=== PATIENT | female | born 1935 | race Caucasian/White ===

== ENCOUNTER → 2016-10-23 08:07 | Outpatient (CLI) | payer MEDICARE, OTHER ==
[2015-10-24 16:39] VITALS: BMI 24.1
[~2016-10-23 08:07] MED LIST: BAYER CHEWABLE81 MG PO; CRESTOR5 MG PO; JANUVIA100 MG PO; KLOR-CON 1010 MEQ PO; NAMENDA10 MG PO; NEXIUM40 MG PO; PLAVIX75 MG PO; REQUIP4 MG PO; ZYRTEC10 MG PO
== END | disposition home or self-care (01) ==
LOC: D.CT 08:07
DX: R31.9 Hematuria, unspecified (principal)

== ENCOUNTER 2016-11-05 14:51 | Inpatient (IN) | payer MEDICARE, OTHER ==
[~2016-11-05] VITALS: Ht 157.5 cm; Wt 65.8 kg
--- NOTE | ~2016-11-05 | DS ---
PATIENT:DERIC BEARDEN :37 MEDICAL RECORD: [id number] DISCHARGE SUMMARY ADMISSION DATE: 11/05/16 DISCHARGE DATE: 11/08/16 DATE OF ADMISSION: 11/05/2016 DATE OF DISCHARGE: 11/08/2016 ADMITTING DIAGNOSES: 1. Urinary tract infection. 2. Dehydration. 3. Acute kidney injury. 4. Nephrolithiasis. 5. Diarrhea that is chronic. HOSPITAL COURSE: This is a lady of Dr. Kramer, admitted with diagnoses as outlined above. Details are well-outlined in the history of the present illness, H&P. All events, lab procedures, diagnostic testing are well documented in the records. She is an established patient of Dr. Lama, who does not come here. She has nephrolithiasis status post urethral stenting by him about 2 weeks ago. She is admitted with diagnoses as outlined above. CONSULTANTS: Dr. Hunt, urology, his recommendations were followed. She was taken to the OR. She underwent cytoscopy with removal of previous stent, left retrograde pyelogram, left ureteroscopy, laser lithotripsy, stone extraction, left ureteral stent insertion with string attached. Please refer to his operative report. She was having some tight throat and nausea when she got back from the OR. No stridor on exam, it was suspected she had throat tightness and nausea due to irritation from ET tube. She was given Decadron times 1 and some Zofran. She did well overnight. Her throat irritation, tightness, and nausea all resolved. She is sitting up on the side of the bed. She is eating lunch. No dysphagia, no trouble swallowing. Her daughter is here. They both want to go home. She has been seen by Dr. Hunt and felt stable for dismissal home. PHYSICAL EXAMINATION: VITAL SIGNS: She is afebrile, pulse 61, respirations 22, blood pressure 130/57. O2 sat 96% room air. Blood sugar 186. LABORATORY DATA: White count 3, hemoglobin 11, platelets are 196. Sodium 138, potassium 4, chloride 106, CO2 is 22, BUN 17, serum creatinine 1.3. She is stable for dismissal home. She will follow up with house calls. Dr. Sheridan is her PCP. She will follow up with Dr. Hunt next week to have the stent removed by pulling on the string. Cultures have shown no growth. She will have 5 more days of antibiotics. Please refer to APR. 33 minutes was spent on this discharge. DISCHARGE DIAGNOSES: 1. Urinary tract infection. 2. Dehydration. 3. Acute kidney injury. Her acute kidney injury was prerenal due to dehydration and has resolved. 4. Nephrolithiasis. 5. Diarrhea that is chronic. 6. Left mid ureter 1.1 cm stone with urinary tract infection, status post DISCHARGE SUMMARY REPORT [id number] DERIC BEARDEN cytoscopy removal of previous stent, left ureteroscopy, laser lithotripsy, stone extraction and left ureteral stent insertion with string. Please refer to operative report. TRANSINT:[id number] Voice Confirmation ID: [id number] DOCUMENT ID: [id number] Dictated By: FAMILIA MAGALLANES RN I have interviewed/examined the above patient and agree with these documented findings. RADHIKA BRENNER DO CC: [id number] DICTATION DATE: 11/08/16 1356 SMOG TECHNICIAN: 11/08/16 2336 DIS IN 11/08/16 [address] [place] [address]
[2016-11-05 18:22] LABS: BASOPHILS 0.2 % (0-2); EOSINOPHILS 1.9 % (0-7); HEMATOCRIT 36.1 % (36.0-48.0); HEMOGLOBIN 11.8 g/dL (12-16); MCH 30.7 pg (26.0-34.0); MCHC 32.7 g/dL (31.0-37.0); MEAN PLATELET VOLUME 9.5 fL (7.4-10.4); MONOCYTES 9.1 % (2-11); NEUTROPHILS 75.8 % (40-80); PLATELET COUNT 206 10x3/uL (130-400); RBC 3.84 10x6/uL (4.00-5.40); RDW 12.7 % (11.5-14.5); WBC 5.2 10x3/uL (4.8-10.8)
[2016-11-05 18:32] LABS: APPEARANCE CLEAR (CLEAR); BILIRUBIN NEGATIVE (NEGATIVE); COLOR YELLOW (YELLOW); GLUCOSE NEGATIVE (NEGATIVE); KETONE NEGATIVE (NEGATIVE); LEUKOCYTE ESTERASE 1+ (NEGATIVE); NITRITE NEGATIVE (NEGATIVE); PROTEIN TRACE mg/dL (NEGATIVE); UROBILINOGEN NORMAL (NORMAL)
[2016-11-05 18:35] LABS: EPITHELIAL CELLS 0-5 /hpf (0-5); RED CELLS - URINE 0-5 /hpf (0-5)
[2016-11-05 18:36] LABS: ALBUMIN 3.9 g/dL (3.4-5.0); ANION GAP 13.1 mmol/L (8-16); BILIRUBIN - TOTAL 0.7 mg/dL (0.2-1.3); CALCIUM 8.9 mg/dL (8.5-10.1); CARBON DIOXIDE 27.6 mmol/L (21.0-32.0); POTASSIUM - SERUM 4.7 mmol/L (3.5-5.1); PROTEIN - SERUM 7.6 g/dL (6.4-8.2)
[2016-11-05 18:38] LABS: BACTERIA MODERATE /hpf (NONE SEEN)
--- NOTE | 2016-11-05 22:30 | NUR ---
RECEIVED FROM ER. ALERT/ORIENTED X 4. AMBULATED WITH ASSISTANCE TO THE BED. STATED SHE HAD BEEN HAVING DIARRHEA AND FEELING WEAK. HAS AN IV IN L FA SL. ORIENTED TO ROOM AND CALL LIGHT. REQUESTED A SANDWICH. HER DAUGHTER IS PRESENT IN ROOM.
[2016-11-06] VITALS (8 sets, daily range): BP systolic 107–186; BP diastolic 46–70; Ht 157.5 cm; Wt 65.8 kg
[2016-11-06] MEDS ORDERED: NEURONTIN 300300 MG PO (04:27)
[2016-11-06] MEDS ORDERED: BYSTOLIC5 MG PO (04:29)
[2016-11-06] MEDS ORDERED: XALATAN 0.0052.5 ML EACH EYE (04:31)
--- NOTE | 2016-11-06 05:55 | NUR ---
ASSISTED TO BATHROOM TO VOID AND BACK TO BED.
--- NOTE | 2016-11-06 07:55 | NUR ---
AM ROUNDS COMPLETED. INTRODUCED MYSELF TO PT PRIMARY RN FOR TODAYS SHIFT. PT A&O SITTING UP ON EDGE OF BED AND STATES SHE JUST FINISHED USING THE BR. PT DENIES ANY DIARRHEA BUT IS AWARE WE NEED A SAMPLE IF AVAILABLE. PT HAS L.FA PIV WITH NS @100ML/HR INFUSING. PT DENIES ANY CURRENT PAIN OR NEEDS. CL IN REACH, BED IN LOWEST, SIDE RAILS X2 WILL CPOC.
--- NOTE | 2016-11-06 09:53 | NUR ---
INITIATED PTS IVPB ANBX INFUSING VIA L.FA PIV ACCESS. PT HAS NS @100ML/HR ALSO INFUSING. PT RESTING WITH FAMILY AT BEDSIDE. DENIES ANY CURRENT PAIN OR NEEDS AT THIS TIME. WILL CPOC.
--- NOTE | 2016-11-06 10:02 | NUR ---
STOOL SPECIMEN COLLECTED AND SENT TO LAB. PT HAS DIARRHEA LIGHT BROWN IN COLOR. WILL CPOC.
--- NOTE | 2016-11-06 12:15 | NUR ---
PT UP TO BR WITH FAMILY AT BEDSIDE ASSISTING. PT DENIES ANY CURRENT PAIN OR NEEDS. CL IN REACH. WILL CPOC.
--- NOTE | 2016-11-06 15:00 | NUR ---
PT SITTING UP IN BED RESTING QUIETLY WITH FAMILY AT BEDSIDE. PT INQUIRING ABOUT SEEING AND TOMORROWS PLAN. IN SX AND UNAVAILABLE AT THIS TIME. WILL CPOC.
--- NOTE | 2016-11-06 17:45 | NUR ---
PT EATING DINNER AND RESTING QUIETLY IN BED. RR NONLABORED ON RA. PT DENIES ANY CURRENT PAIN OR NEEDS AND STATES SHE IS FEELING PRETTY GOOD OVERALL, STILL WAITING TO SEE . CL IN REACH. WILL CPOC.
--- NOTE | 2016-11-06 19:52 | NUR ---
ALERT/AWAKE RECEIVING UPDRAFT TX. ASSESSMENTS COMPLETED. LEFT CHEST CVL DRSG C/D/I WITH NS INFUSING AT 20ML/HR. PEG TUBE WITH JEVITY 1.5 HÉCTOR INFUSING AT 60 ML/HR. MADRIGAL INTACT/PATENT. HIS IS PRESENT IN ROOM.
--- NOTE | 2016-11-06 21:15 | NUR ---
PATIENT IS ALERT, WATCHING TV. DENIES NEEDS AT THIS TIME. CALL LIGHT IN REACH.
[2016-11-07 04:00] VITALS: BP 192/69
--- NOTE | 2016-11-07 08:20 | NUR ---
AM ROUNDS COMPLETED. INTRODUCED MYSELF TO PT PRIMARY RN FOR TODAYS SHIFT. PT A&O SITTING UP IN BED STATES SHE JUST FINISHED SHOWERING. INTITIATED PTS IVPB ROCEPHIN INFUSING OVER 30MINS VIA L.FA PIV ACCESS WITH NS @100ML/HR RUNNING PRIMARY. PT STATES SHE DID NOT SLEEP WELL AND WAS UP MANY TIMES THROUGHOUT THE NIGHT WITH DIARRHEA. SHE STATES SHE HAS 4 LOOSE BMS THAT WERE BLACK IN COLOR. ASKED HER TO SAVE THE NEXT ONE SO I CAN CHECK IT OUT AND WILL NOTIFY PRIMARY TO SEE ABOUT NEEDING AN OCCULT STOOL COLLECTED. PT NPO FOR PROCEDURE TODAY DENIES ANY QUESTIONS OR CONCERNS AND HAS BEEN NPO SINCE MIDNIGHT. CL IN REACH, BED IN LOWEST, SIDE RAILS X2. NO CURRENT NEEDS AT THIS TIME. WILL CPOC.
[2016-11-07 09:53] LABS: BASOPHILS 0.2 % (0-2); EOSINOPHILS 2.1 % (0-7); HEMATOCRIT 33.8 % (36.0-48.0); HEMOGLOBIN 11.1 g/dL (12-16); LYMPHOCYTES 24.3 % (15-50); MCH 30.6 pg (26.0-34.0); MCHC 32.8 g/dL (31.0-37.0); MCV 93.1 fL (80.0-100.0); MEAN PLATELET VOLUME 9.7 fL (7.4-10.4); MONOCYTES 9.1 % (2-11); NEUTROPHILS 64.3 % (40-80); PLATELET COUNT 203 10x3/uL (130-400); RBC 3.63 10x6/uL (4.00-5.40); RDW 12.6 % (11.5-14.5); WBC 4.7 10x3/uL (4.8-10.8)
[2016-11-07 09:58] LABS: ANION GAP 14.9 mmol/L (8-16); CALCIUM 8.1 mg/dL (8.5-10.1); CARBON DIOXIDE 25.9 mmol/L (21.0-32.0); CREATININE - SERUM 1.3 mg/dL (0.6-1.3); PHOSPHOROUS 3.6 mg/dL (2.5-4.9); POTASSIUM - SERUM 3.8 mmol/L (3.5-5.1)
--- NOTE | 2016-11-07 11:48 | NUR ---
CONSENTS SIGNED AND OBTAINED IN CHART. PT RESTING QUIETLY IN BED WITH AT BEDSIDE. DENIES ANY CURRENT PAIN OR NEEDS AT THIS TIME. CL IN REACH. WILL CPOC.
[2016-11-07 12:00] VITALS: BP 193/61
--- NOTE | 2016-11-07 14:07 | NUR ---
EKG DONE STAT FOR PRE-OP. PRE-OP MEDS ORDERED AND GIVEN. LEVAQUIN ANBX SENT WITH PT TO SX. TRANSDERM PATCH UNAVAILABLE FROM PHARMACY I CALLED AND TOLD THEM TO SEND IT TO SX STAT. PT LEAVING WITH FOOD PRODUCT INSPECTOR NOW. FAMILY AT BEDSIDE. NO FURTHER NEEDS.
--- NOTE | 2016-11-07 14:21 | NUR ---
PATCH WAS IN CASSETTE SO I BROUGHT IT TO SX AND PLACED BEHIND PTS L.EAR.
--- NOTE | 2016-11-07 16:40 | NUR ---
SCOPE PATCH BEHIND LT EAR ON ADMIT
--- NOTE | 2016-11-07 16:47 | NUR ---
[facility] 110 @[id number]
--- NOTE | 2016-11-07 17:12 | NUR ---
PT BACK FROM PROCEDURE. VSS AND BEING MONITERED PER POST PROCEDURE PROTOCOL. PT HAS STRING ADHERED TO ABDOMEN/MADELYN AREA FROM NEW STENT. PT A&O AND DENIES ANY PAIN. PTS FACE IS RED AND SPLOTCHY BUT SHE DENIES ANY WEIRD SENSATION. WILL CTM FOR ANY SPREAD. CL IN REACH, BED IN LOWEST, SIDE RAILS X2. WILL CPOC.
--- NOTE | 2016-11-07 17:43 | NUR ---
PT C/O HER THROAT FEELING LIKE ITS SWELLING. PULSE OX 96% ON RA. PROVIDED PT WITH WATER AND SHE SWALLOWED AND STATED IT HELPED. PTS MOUTH WAS EXTREMELY DRY. VSS AND STILL BEING MONITERED. PTS FAMILY AT BEDSIDE. NO FURTHER NEEDS AT THIS TIME. WILL CPOC.
[2016-11-07] MEDS ORDERED: HYDROCODON-ACE1 EAC9 PO (18:20)
--- NOTE | 2016-11-07 18:21 | NUR ---
PROVIDED PT WITH PRN ZOFRAN FOR NAUSEATED PT VOMITED ABOUT 300CC OF CLEAR LIQUID. PROVIDED PT WITH ONE TIME DOSE OF DECADRON FOR ALLERGIC REACTION/SKIN IRRITATION. VSS AND STILL BEING MONITERED. PROVIDED PT WITH COLD RAG TO FOREHEAD. FAMILY AT BEDSIDE CONSOLING HER. NO FURTHER NEEDS. WILL CTM.
[2016-11-07 20:00] VITALS: BP 140/55
--- NOTE | 2016-11-07 21:08 | NUR ---
PATIENT IS ALERT AND WATCHING TV, DAUGHTER IS AT BEDSIDE. IV IS IN LEFT FA WITH NS RUNNING AT 100ML/HR. PAIN MEDICATION GIVEN WITH EFFECTIVE RESULTS. CALL LIGHT IN REACH.
--- NOTE | 2016-11-08 00:18 | NUR ---
PT AWAKE; DENIES ANY DISCOMFORT. FAMILY AT BEDSIDE.
[2016-11-08 04:00] VITALS: BP 123/51
[2016-11-08 05:30] LABS: BASOPHILS 0 % (0-2); EOSINOPHILS 0 % (0-7); HEMATOCRIT 33.7 % (36.0-48.0); HEMOGLOBIN 11.3 g/dL (12-16); IMMATURE GRANULOCYTES 0.3 % (0-5); LYMPHOCYTES 22.1 % (15-50); MCHC 33.5 g/dL (31.0-37.0); MCV 92.3 fL (80.0-100.0); MEAN PLATELET VOLUME 9.6 fL (7.4-10.4); MONOCYTES 1.7 % (2-11); NEUTROPHILS 75.9 % (40-80); PLATELET COUNT 196 10x3/uL (130-400); RBC 3.65 10x6/uL (4.00-5.40); RDW 12.7 % (11.5-14.5)
[2016-11-08 06:04] LABS: ANION GAP 13.6 mmol/L (8-16); CALCIUM 7.1 mg/dL (8.5-10.1); CARBON DIOXIDE 22.4 mmol/L (21.0-32.0); CREATININE - SERUM 1.3 mg/dL (0.6-1.3)
[2016-11-08 08:10] VITALS: BP 130/57
--- NOTE | 2016-11-08 08:23 | NUR ---
AM ROUNDING DONE. REPORT RECEIVED. PT IS SLEEPING AT CHANGE OF SHIFT, DAUGHTER IS AT BEDSIDE. PT IS ON RA. NS RUNNING AT 100CC/HR TO LEFT FOREARM IV SITE. PT'S DAUGHTER STATES THAT SHE IS HOPING THAT PT WILL BE D/C'D TODAY. NO D/C ORDER YET. DTR DENIES NEEDS CURRENTLY. WILL CONTINUE TO MONITOR.
[2016-11-08 12:32] VITALS: BP 136/42
[2016-11-08] MEDS ORDERED: LEVAQUIN500 MG PO (13:40)
--- NOTE | 2016-11-08 15:08 | NUR ---
VERBAL AND WRITTEN DISCHARGE INSTRUCITONS GIVEN TO PATIENT AND DAUGHTER. TEJINDER RAYMOND WAS CALLED TO [facility] PER THEIR REQUEST. 500 MG # 5 WITH NO REFILLS. SALINE LOCK REMOVED WITH CATH TIP INTACT. DISCHARGED HOME VIA WHEELCHAIR.
--- NOTE | 2016-11-11 08:36 | OP ---
PATIENT NAME: DERIC BEARDEN MEDICAL RECORD: [id number] :37 LOCATION:D. D.2132 ADMISSION DATE:11/05/16 SURGEON: CHADD YOUNG MD DATE OF OPERATION: 11/07/2016 SURGEON: Chadd Young MD ANESTHESIA: General anesthesia by Dr. Carlson. PREOPERATIVE DIAGNOSIS: Left mid ureteral 1.1-cm stone with urinary tract infection. FINDINGS: Radiolucent 1.1-cm proximal left ureteral stone. PROCEDURES: Cystoscopy, removal of previous stent, left ureteroscopy, holmium laser lithotripsy with stone extraction, left ureteral stent insertion 6-Lebanese x 24 cm with string attached. Laser energy with the holmium laser was 0.5 joules times 311 pulses. SPECIMENS: 1. Old ureteral stent. 2. Portion of ureteral stone. BLOOD LOSS: None. CLINICAL HISTORY: This is an 81-year-old female, who has a history of diabetes mellitus and recurrent urinary tract infections. She has lately had episodes of sepsis from urinary tract infection and on imaging, she was found to have a 1.1-cm left mid ureteral stone causing hydronephrosis. She went to see Dr. Lama at [facility]. He inserted a left ureteral stent. In the interim, she got quite ill from urinary tract infection and she was brought to this hospital. She was started on IV Rocephin. In discussing the situation with the patient, she wished to have the stone removed here. She has been afebrile and her white count has gone down. We decided to proceed. She was given IV Levaquin prophylaxis. SHE IS ALLERGIC TO PENICILLIN, PROPOFOL, AND BACTRIM WELL LATEX. DESCRIPTION OF PROCEDURE: The patient was given induction of general anesthesia. She was placed in the dorsal lithotomy position. She was prepped and draped. A 21-Lebanese cystoscope with 30-degree lens was used for visualization. The patient has a significant cystocele, which made the ureteral orifice descend quite a distance from the urethral meatus. The old left ureteral stent that Dr. Lama had placed was seen. Grasping forceps were used and it was entirely removed. It will be sent to pathology for identification only. An open-ended ureteral catheter was then inserted and a left retrograde pyelogram was performed. This showed the stone as a filling defect in the mid to proximal ureter. We then inserted through the lumen of the open-ended ureteral catheter, a Sensor wire up to the renal pelvis. The open-ended ureteral catheter was then removed leaving the wire in place. Over the wire, we inserted a 21-Lebanese x 4-cm ureteral dilation balloon. The balloon was used to dilate the left ureteral orifice for a few seconds with 18 atmospheres of pressure. The balloon was then completely deflated and removed entirely. We then switched over to the rigid ureteroscope. The stone was seen to be lodged in some tissue edema of the ureter. I pushed it more proximally using the tip of the ureteroscope into an area where hydronephrosis of the OPERATIVE REPORT [id number] BEARDEN,DERIC ureter allowed for more working space. The 500 micron holmium laser fiber was then brought in. Using the 0.5 joules of energy per pulse at 6 ray, the stone was pulverized. A small speck of the stone ran up into the lower pole maria elena of the kidney from our irrigation. As we placed a 0-tip basket into the ureteroscope, we only manage to retrieve one fairly large fragment of the stone. Most of the other parts of the stone was basically dust and too small to retrieve with a basket. The small speck of stone that we retrieved was sent to pathology for stone analysis. The rigid ureteroscope was then removed. Over the Sensor wire, I inserted a 12-Lebanese ureteral access sheath. Under fluoroscopic guidance, the sheath was placed up into the UP junction. Then, the wire and the stylet of the sheath was completely removed. A flexible ureteroscope was placed and each of the calices was examined. A small speck of stone was found. We tried to remove it using the flexible basket; however, it eluded our grasp and basically was flushed down the ureteral access sheath. At this point, the wire was placed back into the kidney through the ureteral access sheath. The ureteral access sheath was then removed entirely. The cystoscope was backloaded onto the wire and over the wire, we inserted a 6-Lebanese x 24-cm ureteral stent. The string on the distal end of the stent is maintained. Once the proximal end of the stent was in the renal pelvis, we allowed the proximal end to coil by withdrawing the Sensor wire. Finally, the wire was entirely removed and the distal end of the stent was pushed into the bladder using the pusher. The bladder was emptied through the cystoscope. The string on the stent was then taped to the suprapubic region using a small piece of Tegaderm. The patient was awakened and brought to the recovery room. In a few days time, I will have the stent removed by pulling on the string. TRANSINT:[id number] Voice Confirmation ID: [id number] DOCUMENT ID: [id number] CHADD YOUNG MD at 0836 CC: [id number] DICTATION DATE: 11/07/16 160 RUBBER PROCESS HAND: 11/07/16 1831 DIS IN 11/08/16 [facility] [address] [id number]
== END 2016-11-08 15:12 | disposition home or self-care (01) | DRG 669 ==
LOC: D.ER 14:51 → D.M2 20:56
PROVIDERS: Physician Assistant; Urology; ADMIT Family Medicine
PROC: 0TC78ZZ Extirpation of Matter from Left Ureter, Via Natural or Artificial Opening Endoscopic (ICD-10-PCS; principal; 2016-11-07 13:00)
PROC: 0T778DZ Dilation of Left Ureter with Intraluminal Device, Via Natural or Artificial Opening Endoscopic (ICD-10-PCS; 2016-11-07 13:00)
PROC: 0TP98DZ Removal of Intraluminal Device from Ureter, Via Natural or Artificial Opening Endoscopic (ICD-10-PCS; 2016-11-07 13:00)
DX: N20.2 Calculus of kidney with calculus of ureter (principal); N39.0 Urinary tract infection, site not specified; N17.9 Acute kidney failure, unspecified; E86.0 Dehydration; K52.9 Noninfective gastroenteritis and colitis, unspecified; Z86.73 Personal history of transient ischemic attack (TIA), and cerebral infarction without residual deficits; R41.0 Disorientation, unspecified; I10 Essential (primary) hypertension; E11.9 Type 2 diabetes mellitus without complications; K21.9 Gastro-esophageal reflux disease without esophagitis

== ENCOUNTER 2016-11-23 12:32 | Inpatient (IN) | payer MEDICARE, OTHER ==
[~2016-11-23 12:32] MED LIST changes: +BYSTOLIC5 MG PO; +HYDROCODONE-APA1 TAB PO; -KLOR-CON 1010 MEQ PO; +KLOR-CON M2020 MEQ PO; +LEVAQUIN500 MG PO; +NEURONTIN 300300 MG PO; +XALATAN 0.0052.5 ML EACH EYE
[2016-11-23 13:07] LABS: BASOPHILS 0 % (0-2); EOSINOPHILS 0.3 % (0-7); HEMATOCRIT 37.6 % (36.0-48.0); HEMOGLOBIN 12.5 g/dL (12-16); IMMATURE GRANULOCYTES 0.2 % (0-5); LYMPHOCYTES 10.2 % (15-50); MCH 30.7 pg (26.0-34.0); MCHC 33.2 g/dL (31.0-37.0); MCV 92.4 fL (80.0-100.0); MEAN PLATELET VOLUME 9.5 fL (7.4-10.4); MONOCYTES 6.8 % (2-11); NEUTROPHILS 82.5 % (40-80); PLATELET COUNT 176 10x3/uL (130-400); RBC 4.07 10x6/uL (4.00-5.40); RDW 12.3 % (11.5-14.5); WBC 12.6 10x3/uL (4.8-10.8)
[2016-11-23 13:16] LABS: APPEARANCE HAZY (CLEAR); BILIRUBIN NEGATIVE (NEGATIVE); COLOR YELLOW (YELLOW); GLUCOSE 100 mg/dL (NEGATIVE); KETONE NEGATIVE (NEGATIVE); NITRITE NEGATIVE (NEGATIVE); PROTEIN NEGATIVE (NEGATIVE); UROBILINOGEN NORMAL (NORMAL)
[2016-11-23 13:20] LABS: ALBUMIN 3.6 g/dL (3.4-5.0); ANION GAP 15.8 mmol/L (8-16); BILIRUBIN - TOTAL 0.93 mg/dL (0.2-1.3); CARBON DIOXIDE 28.1 mmol/L (21.0-32.0); CREATININE - SERUM 1.1 mg/dL (0.6-1.3); POTASSIUM - SERUM 3.9 mmol/L (3.5-5.1); PROTEIN - SERUM 7.5 g/dL (6.4-8.2)
[2016-11-23 13:23] LABS: BACTERIA MODERATE /hpf (NONE SEEN); EPITHELIAL CELLS 0-5 /hpf (0-5); RED CELLS - URINE 0-5 /hpf (0-5)
[2016-11-23 15:27] LABS: APTT 24.7 SECONDS (22.8-39.4); INR 1.05 (0.85-1.17); PROTIME 13.5 SECONDS (11.6-15.0)
--- NOTE | 2016-11-23 16:35 | NUR ---
RECEIVED PATIENT VIA STRETCHER FROM THE EMERGENCY ROOM. PATIENT'S 2 DAUGHTERS WITH HER. PATIENT IS AWAKE, ALERT, AND ORIENTED TO PERSON ONLY. DISORIENTED TO PLACE, TIME, AND SITUATION. ORIENTED PATIENT TO HER ROOM AND CALL LIGHT. WILL MONITOR PATIENT.
[2016-11-23 17:43] VITALS: BP 127/59; BMI 26.9
--- NOTE | 2016-11-23 17:43 | NUR ---
ADMISSION ASSESSMENT COMPLETED. SEE FLOWSHEET FOR ANY DETAILS. PATIENT IS ONLY ORIENTED TO HER NAME ONLY. DISORIENTED TO PLACE, TIME, AND SITUATION. PATIENT DENIES ANY PAIN. WEAKNESS NOTED TO BILATERAL UPPER AND LOWER EXTREMITIES. CALL LIGHT IN PATIENT'S REACH. PATIENT DENIES NEEDS AT PRESENT TIME. WILL MONITOR PATIENT.
--- NOTE | 2016-11-23 19:00 | NUR ---
REPORT RECEIVED AND CARE OF PT ASSUMED. PT LYING IN SUPINE POSITION VISITING WITH DAUGHTER. IV IN LEFT WRIST PATENT WITH NS INFUSING AT KVO. SALINE LOCKED IV FOR NOW. BED ALARM IN USE AND SIDE RAILS UP X2 FOR SAFETY.
[2016-11-23 20:00] VITALS: BP 167/62
--- NOTE | 2016-11-23 21:42 | NUR ---
HS MEDICATIONS GIVEN. WILL CONTINUE TO MONITOR FOR NEEDS.
--- NOTE | 2016-11-23 22:00 | NUR ---
PLACED SCD'S ON PT PER ORDER.
[2016-11-24] VITALS: BP 156/71
--- NOTE | 2016-11-24 01:12 | NUR ---
PT RESTING QUIETLY ON LEFT SIDE PROPPED WITH PILLOWS PER TURN SCHEDULE. WILL CONTINUE TO MONITOR FOR NEEDS.
--- NOTE | 2016-11-24 02:23 | NUR ---
CHANGED INCONTINENCE BRIEF. CHANGED GOWN AND REPLACED ALL TELEMETRY PADS. MADELYN CARE PERFORMED. SCD'S REPLACED. TURNED PT TO LEFT SIDE PROPPED WITH PILLOWS AND BRIDGED HEELS. NEW GRIPPER SOCKS PLACED ON FEET. BED ALARM ACTIVATED. WILL CONTINUE TO MONITOR FOR NEEDS.
--- NOTE | 2016-11-24 03:05 | NUR ---
PT PULLED OUT CATHETER, WITH TIP INTACT. WILL RE-SITE.
[2016-11-24 04:00] VITALS: BP 143/69
--- NOTE | 2016-11-24 05:10 | NUR ---
RE-SITED IV TO LEFT WRIST USING 20 GUAGE CATHETER IN ONE STICK. WRAPPED WITH KERLEX TO PREVENT PT FROM PULLING OUT AGAIN. PT TOLERATED WELL.
--- NOTE | 2016-11-24 06:14 | NUR ---
ASSISTED PT TO USE BEDPAN. CHANGED WET BRIEF. MADELYN CARE PERFORMED AND BED PAD CHANGED. TURNED ONTO LEFT SIDE PROPPED WITH PILLOWS PER TURN SCHEDULE. HEELS BRIDGED AND SCD'S TURNED BACK ON.
[2016-11-24 06:41] LABS: BASOPHILS 0.1 % (0-2); EOSINOPHILS 0 % (0-7); HEMATOCRIT 33.9 % (36.0-48.0); HEMOGLOBIN 11.2 g/dL (12-16); IMMATURE GRANULOCYTES 0.4 % (0-5); LYMPHOCYTES 6.9 % (15-50); MCV 90.9 fL (80.0-100.0); MEAN PLATELET VOLUME 9.7 fL (7.4-10.4); MONOCYTES 7.6 % (2-11); RBC 3.73 10x6/uL (4.00-5.40); RDW 12.4 % (11.5-14.5); WBC 11.4 10x3/uL (4.8-10.8)
[2016-11-24 06:47] LABS: PLATELET COUNT 139 10x3/uL (130-400)
[2016-11-24 06:59] LABS: CALCIUM 8.6 mg/dL (8.5-10.1); CARBON DIOXIDE 26.5 mmol/L (21.0-32.0); POTASSIUM - SERUM 3.5 mmol/L (3.5-5.1)
[2016-11-24 08:30] VITALS: BP 138/45
--- NOTE | 2016-11-24 09:00 | NUR ---
DR MITCHELL INTO SEE PATIENT. PATIENT REMAINS NPO FOR CTA CAROTID W/WO CONTRAST. JAMEL BRAIN W/WO CONTRAST.
--- NOTE | 2016-11-24 10:52 | NUR ---
CHECKED ON PT FOR DIRECTOR OF MEDIA. PT RESTING COMFORTABLY. DENIES NEEDS AT THIS TIME. FAMILY MEMBERS REQUESTING TO HAVE DR. YOUNG ASSESS PT. AND ALSO WANT HER TO BE REFFERED TO DR. LAGUNA. SPOKE WITH LP AND WILL SHE WILL SPEAK WITH DR. CALDERÓN TO SEE ADDRESS THE FAMILIES REQUESTS.
--- NOTE | 2016-11-24 11:17 | NUR ---
Rehab Note- Acute Rehab Prescreen order received. The patient has an appropriate acute rehab diagnosis. The patient continues to have acute work up. Awaiting PT eval for functional mobility. Will follow at this time. Will plan for an acute rehab stay when medically stable and ready for discharge from the acute hospital. Thank you for this referral! Rneetta Hayes RN Clinical Liaison, [facility]
[2016-11-24 13:09] VITALS: BP 154/46
--- NOTE | 2016-11-24 13:31 | NUR ---
PATIENT INCONT. OF URINE. THIS NURSE GAVE MADELYN CARE. CHANGED BRIEFS.
--- NOTE | 2016-11-24 13:52 | NUR ---
FAMILY IN ROOM. PATIENT REMAINS NPO FOR CTA CAROTID W/WO CONTRAST. MRI BRAIN W/WO CONTRAST.
[2016-11-24 14:11] VITALS: BMI 26.4
--- NOTE | 2016-11-24 14:20 | NUR ---
PATIENT TAKEN OFF BLAS FOR CTA CAROTID
--- NOTE | 2016-11-24 15:40 | NUR ---
URINE COLLECTED BY STRAIGHT CATH AND TAKEN TO LAB
--- NOTE | 2016-11-24 15:54 | NUR ---
PATIENT TAKEN DOWN FOR MRI OF BRAIN W/WO CONTRAST.
--- NOTE | 2016-11-24 18:10 | NUR ---
THIS NURSE CALLED FAMILIA MAGALLANES APN. PATIENT C/O OF PAIN/DISC GENERALIZED. DAUGHER IN ROOM AND STATED THAT PATIENT HAS BEEN TAKING NORCO 10/325 AT HOME AND GABAPENTIN 300 BID. FAMILIA MAGALLANES APN STATED THAT PATIENT COULD HAVE TYLENOL 500MG Q6 HOURS FOR PAIN/DISC AND TO RESTART PATIENTS GABAPENTIN. AFTER I GOT OFF THE PHONE WITH FAMILIA MAGALLANES APN. PATIENTS DAUGHTER CAME OUT OF ROOM AND STATED THAT SHE HAD ALREADY GIVEN HER MOTHER A GABAPENTIN. THIS NURSE TOLD DAUGHTER THAT SHE CAN NOT HAVE ANY MEDICATIONS WITHOUT NURSE ADMINISTRATING THOES MEDICATIONS THAT ARE ORDERED BY THE DOCTOR. THIS NURSE ASKED DAUGHTER TO TAKE ALL OF HER HOME MEDICATIONS BACK HOME.
--- NOTE | 2016-11-24 19:00 | NUR ---
REPORT RECEIVED AND CARE OF PT ASSUMED. PT LYING IN SEMI FERGUSON'S POSITION VISITING WITH DAUGHTER. STILL WITH APHASIC SPEECH. IV IN LEFT WRIST SALINE LOCKED. TURNED PT TO RIGHT SIDE PER TURN SCHEDULE. WILL MONITOR CLOSELY FOR NEEDS.
[2016-11-24 20:00] VITALS: BP 167/52
--- NOTE | 2016-11-24 21:14 | NUR ---
HS MEDICATIONS GIVEN TO INCLUDE TYLENOL 500 MG PO FOR CHRONIC BACK PAIN, SO PT MAY REST EASIER. TURNED PT TO SUPINE POSITION PER TURN SCHEDULE. FSBS 109 THIS CHECK REQUIRING NO COVERAGE PER SLIDING SCALE. WILL CONTINUE TO MONITOR FOR NEEDS.
--- NOTE | 2016-11-24 23:10 | NUR ---
ASSISTED PT TO USE BEDPAN...URINATED 300 ML YELLOW URINE. BED PAD CHANGED. MADELYN CARE PERFORMED. TURNED PT TO LEFT SIDE PER TURN SCHEDULE. BED ALARM IN USE. SIDE RAILS UP X3 FOR SAFETY.
[2016-11-25] VITALS: BP 134/44
[2016-11-25 04:00] VITALS: BP 170/58
[2016-11-25 05:49] LABS: BASOPHILS 0.1 % (0-2); EOSINOPHILS 0.1 % (0-7); HEMATOCRIT 36.5 % (36.0-48.0); HEMOGLOBIN 12.2 g/dL (12-16); IMMATURE GRANULOCYTES 0.4 % (0-5); LYMPHOCYTES 20.6 % (15-50); MCH 30.6 pg (26.0-34.0); MCHC 33.4 g/dL (31.0-37.0); MCV 91.5 fL (80.0-100.0); MEAN PLATELET VOLUME 10.1 fL (7.4-10.4); NEUTROPHILS 66.8 % (40-80); PLATELET COUNT 144 10x3/uL (130-400); RBC 3.99 10x6/uL (4.00-5.40); RDW 12.4 % (11.5-14.5)
[2016-11-25 06:00] LABS: WBC 8.2 10x3/uL (4.8-10.8)
[2016-11-25 06:08] LABS: ANION GAP 14.2 mmol/L (8-16); CALCIUM 9.1 mg/dL (8.5-10.1); CARBON DIOXIDE 28.1 mmol/L (21.0-32.0); POTASSIUM - SERUM 3.3 mmol/L (3.5-5.1)
--- NOTE | 2016-11-25 06:15 | NUR ---
FSBS 104 THIS AM REQUIRING NO COVERAGE PER SLIDING SCALE.
--- NOTE | 2016-11-25 06:21 | NUR ---
POTASSIUM LEVEL 3.3 THIS AM. GAVE 40 MEQ PO POWDER MIXED WITH ORANGE JUICE PER ELECTROLYTE PROTOCOL. PLACED ORDER TO RE-CHECK LEVEL AT 1030 THIS AM.
--- NOTE | 2016-11-25 07:30 | NUR ---
PT IS RESTING IN BED. HER DAUGHTER IS AT BEDSIDE. PT OFFERS NO COMPLAINTS. SHE STATES THAT SHE IS NOT IN PAIN. MOVED PT UP IN BED. PT IS ALERT AND OREINTED THIS AM. GEN- AWAKE AND ALERT. LUNGS- CLEAR. HEART- RRR. ABD- SOFT, NT TO PALOPATION, BS+. EXT. SCD'S INTACT AND OPERATING. BED IS LOW. SIDE RAILS UP AND CALL LIGHT IN REACH. PT HAS TELEMETRY. NSR. IV SALINE LOCK TO R ARM. PT STATES THAT SHE HAS BEEN USING BED SANDERS.
[2016-11-25 08:52] VITALS: BP 142/57
--- NOTE | 2016-11-25 08:58 | NUR ---
PTS DAUGHTER TO DESK. SHE IS GOING TO GET BREAKFAST AND WOULD LIKE TO BE CALLED WHEN DR ARRIVES. SHE STATES THAT THEY DID NOT GET TO SEE A DR YESTERDAY.
--- NOTE | 2016-11-25 11:20 | NUR ---
PTS BS WAS 103. NO INSULIN GIVEN.
[2016-11-25] MEDS ORDERED: NEURONTIN 300300 MG PO ×2 (11:22→11:51)
[2016-11-25] MEDS ORDERED: CHOLESTYRAMIN4 G/PK1 PO (11:24)
[2016-11-25] MEDS ORDERED: CRESTOR5 MG PO (11:25)
[2016-11-25] MEDS ORDERED: COLACE100 MG PO (11:28)
[2016-11-25] MEDS ORDERED: VALIUM5 MG PO (11:29)
--- NOTE | 2016-11-25 11:45 | NUR ---
DR MITCHELL IS UP TO SEE PT.
[2016-11-25] MEDS ORDERED: LEVAQUIN500 MG PO (11:53)
[2016-11-25 12:06] VITALS: BP 129/59
--- NOTE | 2016-11-25 12:35 | NUR ---
PT IS SITTING UP IN BED. GETTING READY TO EAT LUNCH. SHE STATES THAT DR MITCHELL SAID SHE COULD GO HOME IF SHE WAS ABLE TO WALK. SHE ORDERED PHYSICAL THERAPY.
--- NOTE | 2016-11-25 12:41 | NUR ---
Patient Name: DERIC BEARDEN Admission Status: ER Accout number: [id number] Admission Date: 11-23-2016 : 1935 Admission Diagnosis:ALTERED MENTAL STATUS, UNSPECIFIED Attending: ABISAI FARR Current LOS: 2 Anticipated DC Date: 11-25-2016 Planned Disposition: Home with Home Health Primary Insurance: MEDICARE A & B Discharge Planning Comments: CM MET WITH PATIENT REGARDING D/C NEEDS AND PLANS. PATIENT STATED SHE LIVES WITH HER SPOUSE (EMMY) AND HE OR FAMILY WILL DRIVE HER HOME AT DISCHARGE. PATIENT HAS 2 STEPS W/RAILS TO ENTER HOME AND NO STAIRS INSIDE. PATIENT IS INDEPENDENT WITH HER CARE AND HAS A WALKER, SHOWER CHAIR, BS COMMODE, AND GLUCOMETER AT HOME. PATIENTS PCP IS DR. COLBY AND PHARMACY IS [facility]. ON [address] PATIENT STATED SHE WOULD GO TO IP REHAB IF NECESSARY BUT WANTS TO SEE HOW SHE DOES WITH PT TODAY. PATIENT DID SIGN A SRINI FORM WITH [employer]. CM WILL CONTINUE TO FOLLOW PATIENT WITH D/C NEEDS AND PLANS. PCP DR. LASHA [facility]DONADO [facility]. [address] [phone] MITCH LUJAN [phone] (DAUGHTER) Metal Box Maker: Adamaxim French Is the patient Alert and Oriented? Yes 0 * How many steps to enter\exit or inside your home? 2 W/RAILS 0 * PCP DR. COLBY 0 * Pharmacy [facility] [address] 0 * Preadmission Environment Home with Family 0 * ADLs Independent 0 * Equipment Bedside Commode Glucometer Shower Chair Walker 0 * List name and contact numbers for known caregivers / representatives who currently or will assist patient after discharge: MITCH TAI [phone] * Community resources currently utilized None 0 * Additional services required to return to the preadmission environment? Yes 0 * Can the patient safely return to the preadmission environment? Yes 0 * Has this patient been hospitalized within the prior 30 days at any hospital? Yes 0 Grand Total: 0
--- NOTE | 2016-11-25 13:52 | NUR ---
CM REASSESSMENT NOTE: PATIENT IS DISCHARGING HOME TODAY / FAMILY DRIVING/SRINI WITH [facility]/NO OTHER NEEDS FOR D/C. IMM SERVED/ WALKER THROUGH [facility] PICKING IT UP
--- NOTE | 2016-11-25 13:59 | NUR ---
CM REASSESSMENT NOTE: PATIENT IS DISCHARGING HOME TODAY / FAMILY DRIVING/SRINI WITH [facility]/NO OTHER NEEDS FOR D/C. IMM SERVED/ WALKER THROUGH [facility] PICKING IT UP AT DISCHARGE
--- NOTE | 2016-11-25 14:05 | NUR ---
OT NOTE: PT MUCH MORE ALERT AND ORIENTED TODAY. FAMILY AT BEDSIDE AND WERE PLEASED AT PTS IMPROVEMENT. THEY REPORTED THAT SHE HAD A UTI. PT UNAWARE OF PREVIOUS DAY. TODAY SHE WAS UP IN BED EATING WITHOUT DIFFICULTY. FULLY ORIENTED. BED MOB WITH MIN ASSIST ; COORDINATION IN B UES GOOD. SIT TO STAND WITH MIN ASSIST. LATER OBSERVED PT IN BLAS AMBULATING WITH PHYS THERAPY. PT REPORTS THAT SHE IS READY TO GO HOME
--- NOTE | 2016-11-25 16:26 | NUR ---
PT IS DISCHARGED HOME. PT GIVEN INSTRUCTIONS AND FU APPT.
== END 2016-11-25 16:27 | disposition home health service (06) | DRG 689 ==
LOC: D.ER 12:32 → D.MS 15:20
PROVIDERS: Emergency Medicine; ADMIT Family Medicine
DX: N39.0 Urinary tract infection, site not specified (principal); G93.41 Metabolic encephalopathy; R47.01 Aphasia; R41.0 Disorientation, unspecified; E11.65 Type 2 diabetes mellitus with hyperglycemia; I10 Essential (primary) hypertension; R15.9 Full incontinence of feces

== ENCOUNTER 2016-12-18 11:58 | Inpatient (IN) | payer MEDICARE, OTHER ==
[~2016-12-18 11:58] MED LIST changes: +CHOLESTYRAMIN4 G/PK1 PO; +COLACE100 MG PO; +VALIUM5 MG PO
--- NOTE | 2016-12-18 12:30 | NUR ---
PATIENT ADMITTED TO [facility] FROM HOME. APPARENTLY PATIENT HAS BEEN TALKING ABOUT SUICIDE. SHE TOLD HER SPOUSE AND HER DAUGHTER SHE JUST WANTED TO AND SHE HAS A PLAN TO OVERDOSE. PATIENT LIVES AT HOME WITH HER SPOUSE. PATIENT IS FLAT IN AFFECT AND SHE SAYS SHE HAS BEEN DEPRESSED SINCE . SHE WAS HAVING BOWEL PROBLEMS FROM ONE EXTREME OF DIARRHEA TO CONSTIPATION. PATIENT WAS ALSO HAVING MULTIPLE UTI'S, A CT WAS DONE AND THEY DID FIND A KIDNEY STONE AND THE STONE WAS REMOVED, SHE WENT HOME AND STAYED A COUPLE DAYS AND SHE DEVELOPED A UTI, BECAME SEPTIC, WENT BACK IN THE HOSPITAL BECAME DELIRIOUS, SHE HAD C-DIFF AND E-COLI AND HAD TO BE PUT ON VANCOMYCIN AND FLAGYL. PATIENT JUST GOT OUT OF [facility] FOR STRENGTHENING ON . 2016. PATIENT DOES WEAR DEPENDS NOW SHE IS FEARFUL SHE MAY HAVE A BM ACCIDENT, SHE HAS HAD A COUPLE SURGERIES ON HER BACK AND HAS SEVERE PAIN AND NERVE DAMAGE TO HER RIGHT LEG AND FOOT. SHE HAS HAD A RIGHT ROTATOR CUFF REPAIR X3, SHE IS STILL NOT STRONG FROM HER HOSPITALIZATIONS AND HAS TO USE A WALKER. I DID SPEAK TO LIZET CROCKETT APN AND SHE DOES BELIEVE THERE ARE SOME DIFFICULT FAMILY DYNAMICS GOING ON. ON ASSESSMENT PATIENT PERHAPS PRESENTS WITH SOME CONFUSION SHE KEPT LOOKING AT HER DAUGHTER TO ANSWER HER QUESTIONS. I DID ASK THE DAUGHTER IF SHE FELT LIKE SHE WAS CONFUSED AND SHE SAID "WELL, ONLY BECAUSE OF ALL OF THE HOSPITALIZATION."
[2016-12-18 12:34] VITALS: BP 145/74; BMI 24.4
[2016-12-18] MEDS ORDERED: CHOLESTYRAMIN4 G/PK1 PO (14:47)
[2016-12-18] MEDS ORDERED: NOVOLOG100 U/M1 SC (14:47)
[2016-12-18] MEDS ORDERED: LOVENOX40 MG/0.4 SC (14:48)
[2016-12-18] MEDS ORDERED: ACIDOPHILUS LAC1 CAP PO (14:49)
[2016-12-18] MEDS ORDERED: PROTONIX20 MG PO (14:50)
[2016-12-18] MEDS ORDERED: FLAGYL500 MG PO (14:50)
[2016-12-18] MEDS ORDERED: VANCOMYCIN250 MG/51 PO (14:51)
[2016-12-18] MEDS ORDERED: ACETAMINOPHEN325 MG PO (14:52)
[2016-12-18] MEDS ORDERED: MYLANTA / MAALO30 ML PO (14:56)
[2016-12-18] MEDS ORDERED: MILK OF MAGNESI30 ML PO (14:59)
[2016-12-18] MEDS ORDERED: ZOFRAN4 MG PO (15:00)
[2016-12-18] MEDS ORDERED: ONDANSETRON4 MG/2 M3 IV (15:01)
[2016-12-18] MEDS ORDERED: HEALTHYLAX17 GM PO (15:03)
[2016-12-18] MEDS ORDERED: MIRALAX17 GM PO (15:04)
[2016-12-18 16:25] LABS: BASOPHILS 0.2 % (0-2); EOSINOPHILS 0.9 % (0-7); HEMATOCRIT 37.9 % (36.0-48.0); HEMOGLOBIN 12.1 g/dL (12-16); IMMATURE GRANULOCYTES 0.2 % (0-5); LYMPHOCYTES 33.3 % (15-50); MCH 29.7 pg (26.0-34.0); MCHC 31.9 g/dL (31.0-37.0); MCV 93.1 fL (80.0-100.0); MEAN PLATELET VOLUME 9.8 fL (7.4-10.4); MONOCYTES 10.7 % (2-11); NEUTROPHILS 54.7 % (40-80); PLATELET COUNT 265 10x3/uL (130-400); RBC 4.07 10x6/uL (4.00-5.40); RDW 14.2 % (11.5-14.5); WBC 4.6 10x3/uL (4.8-10.8)
[2016-12-18 16:35] LABS: HEMOGLOBIN A1C 6.5 % (4.8-6.0)
[2016-12-18 16:46] LABS: ALBUMIN 3.9 g/dL (3.4-5.0); ANION GAP 13.2 mmol/L (8-16); BILIRUBIN - TOTAL 0.45 mg/dL (0.2-1.3); CALCIUM 9.7 mg/dL (8.5-10.1); CARBON DIOXIDE 26.3 mmol/L (21.0-32.0); CHOL - HDL RATIO 3.6 ratio (2.3-4.1); CREATININE - SERUM 1.2 mg/dL (0.6-1.3); POTASSIUM - SERUM 4.5 mmol/L (3.5-5.1); PROTEIN - SERUM 7.7 g/dL (6.4-8.2); THYROID STIMULATING HORMONE 0.89 uIU/mL (0.36-3.74)
[2016-12-18 20:31] VITALS: BP 142/116
--- NOTE | 2016-12-19 01:43 | NUR ---
B) Patient is alert and oriented , very quiet and keeping to herself, calm and cooperative, no S.I., I) Administered scheduled medications, monitored for safety, contracted for safety, R) Medication compliant, pleasant and friendly, confused at times, P) Continue plan of care.
--- NOTE | 2016-12-19 07:53 | NUR ---
PT IS CONFUSED. SHE STATED THAT DR. CURRY HAD REMOVED KIDNEYS STONES FROM HER LAST WEEK. REORIENTED PT TO CURRENT EVENTS. PT USES HER WALKER TO AMBULATE. FALL PRECAUTIONS MAINTAINED. PT C/O ANXIETY BUT DOES NOT RATE IT. ENCOURAGED PT TO EXPRESS NEEDS AND FEELINGS TO STAFF. WILL CONTINUE TO MONITOR AND CONTINUE WITH PLAN OF CARE.
[2016-12-19 08:00] VITALS: BP 137/70
[2016-12-19 14:21] VITALS: Wt 60.3 kg
[2016-12-19 19:30] VITALS: BP 105/46
--- NOTE | 2016-12-19 21:52 | PSY ---
PATIENT NAME:EDRIC BEARDEN MEDICAL RECORD: [id number] : 37 LOCATION:[facility] Fu ADMISSION DATE: 12/18/16 ACCOUNT: [id number] PSYCHIATRIC EVALUATION DATE OF EVALUATION: 12/19/16 IDENTIFYING DATA: This is the first [facility] admission for this 81-year-old white female. HISTORY OF PRESENT ILLNESS: This patient was admitted from home. She had been seen by nurse practitioner from Dr. Balderas's office and a concern existed that the patient was acutely suicidal. The patient had been showing very clear-cut signs and symptoms of depression including loss of appetite, low energy, poor concentration, and expressions of hopelessness. The patient has a number of ongoing medical problems. These include significant cerebrovascular disease, recent urinary tract infection for which she was hospitalized, type 2 diabetes, coronary artery disease, hypertension, history of coronary artery bypass, gastroesophageal reflux disease, colitis, and glaucoma. The patient had not been treated either with antidepressant or memory-enhancing medications prior to admission. PAST MEDICAL HISTORY: See above. MEDICATIONS: At the time of admission were extensive including cholestyramine, Xalatan eye drops, Lovenox, Flagyl, Protonix, vancomycin, and p.r.n. Zofran. FAMILY HISTORY: Noncontributory. SOCIAL HISTORY: [facility] She does have family support. No substance abuse issues. MENTAL STATUS: On exam, the patient was pleasant, but confused. Mood is somewhat anxious. Affect is overall constricted. Content of thought is negative for overt psychosis. The patient does focus on somatic concerns. On sensorium testing, the patient is oriented to person and the fact that she is hospitalized. She is not correctly oriented as to date. Remote and intermediate recall show significant deficits. Concentration is quite poor. The patient was seen by Dr. Sexton for neuropsychological testing. She scored 10/30 on the [facility] Mental Status Exam. DIAGNOSTIC IMPRESSION: AXIS I: Vascular dementia, secondary depression. AXIS II: No diagnosis. AXIS III: Cerebrovascular disease, recent urinary tract infection, hypertension, type 2 diabetes, coronary artery disease, gastroesophageal reflux disease, glaucoma. AXIS IV: Severe. AXIS V: 38. PLAN: 1. The patient is admitted for further medical and psychiatric workup. 2. Diet and activities as tolerated. 3. We will coordinate with family regarding aftercare plans. TRANSINT:[id number] Voice Confirmation ID: [id number] DOCUMENT ID: [id number] HELLEN CURRY III, MD at 2152 CC: [id number] DICTATION DATE: 12/19/16 1221 REGIONAL SALES DIRECTOR: 12/19/16 1307 ADM IN [place] [id number] [place] [address]
--- NOTE | 2016-12-20 00:43 | NUR ---
RECEIVED IN BEDROOM. VERY CONFUSED. CALM AND COOPERATIVE WITH CARE AND ASSESSMENTS. REDIRECT AND REORIENT NEEDED. ENCOURAGE TO EXPRESS NEEDS. CONTINUE PLAN OF CARE
[2016-12-20 05:14] LABS: RAPID PLASMA REAGIN Non Reactive (Non Reactive)
[2016-12-20 08:16] LABS: FOLATE (FOLIC ACID) - SERUM 16.1 ng/mL (>3.0)
--- NOTE | 2016-12-20 10:36 | NUR ---
PT STATES SHE WILL NOT TAKE MEDS UNTIL SHE SPEAKS WITH THE DOCTOR, I WAS ABLE TO GET HER TO TAKE HER VANCOMYCIN. I EXPLAINED TO HER WHAT EACH MEDICATION WAS FOR PT STILL REFUSED TO TAKE MEDICATION.
[2016-12-20 11:41] LABS: APPEARANCE CLOUDY (CLEAR); COLOR YELLOW (YELLOW)
[2016-12-20 11:42] LABS: BILIRUBIN NEGATIVE (NEGATIVE); GLUCOSE NEGATIVE (NEGATIVE); KETONE NEGATIVE (NEGATIVE); NITRITE NEGATIVE (NEGATIVE); PROTEIN NEGATIVE (NEGATIVE); SPECIFIC GRAVITY 1.015 (1.005-1.020); UROBILINOGEN NORMAL (NORMAL)
[2016-12-20 11:47] LABS: BACTERIA MANY /hpf (NONE SEEN); EPITHELIAL CELLS 0-5 /hpf (0-5); HYALINE CAST OCC /lpf (NONE SEEN); MUCUS <1+ /lpf (NONE SEEN); RED CELLS - URINE 0-5 /hpf (0-5)
[2016-12-20 11:48] LABS: GRANULAR CAST OCC /lpf (NONE SEEN)
[2016-12-20 16:04] VITALS: BP 137/80
--- NOTE | 2016-12-20 17:50 | NUR ---
CONTINUES TO REFUSE MEDICATIONS STATES SHE IS OLD ENOUGH TO MAKE HER OWN DECISIONS AND IS JUST TIRED.
--- NOTE | 2016-12-20 18:32 | NUR ---
CONFUSED AND DISORIENTED.NONCOMPLIANT WITH MEDS.TOOK ONE DOSE OF VANCOMYCIN THIS AM BUT REFUSED OTHER MEDS TODAY.IS AMBULATORY .HAS REFUSED MEALS TODAY AND KEPS TO HERSELF MOST OF THE TIME.WILL CONTINUE WITH PLAN OF CARE,MONITOR FOR CHANGES AND SAFETY.
[2016-12-20 19:30] VITALS: BP 136/74
--- NOTE | 2016-12-20 22:11 | NUR ---
RECEIVED IN BEDROOM. RESTING IN BED WITH EYES CLOSED. RESPONDS TO TOUCH. CALM AND COOPERATIVE WITH CARE AND ASSESSMENTS. DENIES THOUGHTS OF SELF HARM. VERY CONFUSED. REDIRECT AND REORIENT NEEDED. CONTINUES TO REST QUIETLY IN BED. CONTINUE PLAN OF CARE
--- NOTE | 2016-12-21 05:02 | PN ---
PATIENT:DERIC BEARDEN MEDICAL RECORD: [id number] LOCATION:[facility] Lord ADMISSION DATE: 12/18/16 PROGRESS NOTE DATE OF SERVICE: 12/20/2016 SUBJECTIVE: No new complaint. OBJECTIVE: The patient continues to show considerable confusion. She is tolerating medications well to this point. She continues to show evidence of constricted affect. On exam, mood is dysphoric. Affect is constricted. Speech is rather tangential. Content of thought focuses on somatic concerns. Sensorium is unchanged. ASSESSMENT: No change in diagnosis. PLAN: 1. Continue current medications. 2. Continue supportive therapy. TRANSINT:[id number] Voice Confirmation ID: [id number] DOCUMENT ID: [id number] HELLEN CURRY III, MD at 0502 CC: [id number] DICTATION DATE: 12/20/16 0954 SUPERVISOR AIRPLANE FLIGHT ATTENDANT: 12/20/16 1154 ADM IN [address] [id number] [place] [address]
--- NOTE | 2016-12-21 17:59 | NUR ---
CONFUSED AND DISORIENTED.AMBULATORY WITH WALKER.ATE BREAKFAST AND DINNER TODAY.REFUSED LUNCH.TOOK ALL MEDS TODAY EXCEPT FOR MERILAX AND QUESTRAN.WILL CONTINUE WITH PLAN OF CARE,MONITOR FOR CHANGES AND SAFETY.
[2016-12-21 19:09] VITALS: BP 140/78
[2016-12-21 20:30] VITALS: BP 100/55
--- NOTE | 2016-12-21 21:39 | NUR ---
RECEIVED IN BEDROOM. RESTING IN BED WITH EYES CLOSED. RESPONDS TO VOICE. CALM AND COOPERATIVE WITH CARE AND ASSESSMENTS. DENIES THOUGHTS OF SELF HARM. ENCOURAGE TO EXPRESS NEEDS AND FEELINGS. CONTINUES TO REST QUIETLY IN BED. CONTINUE PLAN OF CARE
[2016-12-22 06:07] LABS: VITAMIN D 25 HYDROXY 21.2 ng/mL (30.0-100.0)
[2016-12-22 12:18] VITALS: BP 150/80
--- NOTE | 2016-12-22 13:10 | NUR ---
CONFUSED AND DISORIENTED, KNOWS NAME. CALM AND COOPERATIVE WITH CARE AND ASSESSMENT. COMPLIANT WITH TAKING MEDICATIONS. CONTINUE POC AND MONITOR.
[2016-12-22 20:35] VITALS: BP 126/80
--- NOTE | 2016-12-22 20:57 | NUR ---
RECEIVED IN BEDROOM. RESTING IN BED WITH EYES CLOSED. RESPONDS TO VOICE. CALM AND COOPERATIVE WITH CARE AND ASSESSMENTS. DENIES THOUGHTS OF SELF HARM. ENCOURAGE TO EXPRESS NEEDS. CONTINUES TO REST QUIETLY IN BED. CONTINUE PLAN OF CARE
--- NOTE | 2016-12-23 10:17 | PN ---
PATIENT:DERIC BEARDEN MEDICAL RECORD: [id number] LOCATION:[facility] Lord ADMISSION DATE: 12/18/16 PROGRESS NOTE DATE OF SERVICE: 12/22/2016 SUBJECTIVE: No new complaint. OBJECTIVE: The patient remains quite confused. Extensive telephone conversation was held with the patient's daughter. Questions were answered about current treatment plan and diagnosis. The daughter did request that Dr. Daren Sheridan see the patient, a consult will be placed. On exam, the patient's mood is anxious. Affect is very shallow. Speech is tangential. Content of thought is negative for overt psychosis. Sensorium shows no change. ASSESSMENT: No change in diagnosis. PLAN: 1. Maintain current medications. 2. Continue supportive therapy. TRANSINT:[id number] Voice Confirmation ID: [id number] DOCUMENT ID: [id number] HELLEN CURRY III, MD at 1017 CC: [id number] DICTATION DATE: 12/22/16 1352 CERTIFIED PERSONAL FINANCE COUNSELOR: 12/22/16 1419 ADM IN [place] [id number] [place] [id number]
[2016-12-23 10:32] VITALS: BP 140/79
--- NOTE | 2016-12-23 13:43 | NUR ---
Nutrition Follow Up: Chart reviewed. Pt is eating 46% meal avg on a regular diet. +BM 12/21/16. Labs reviewed. Meds noted including Questran, Flagyl. Rec continue current diet. RD following.
[2016-12-23 20:22] VITALS: BP 136/55
--- NOTE | 2016-12-23 21:06 | NUR ---
RECEIVED IN BEDROOM. RESTING IN BED WITH EYES CLOSED. RESPONDS TO VOICE. CALM AND COOPERATIVE WITH CARE AND ASSESSMENTS. DENIES THOUGHTS OF SELF HARM. REDIRECT AND REORIENT NEEDED, CONTINUES TO REST QUIETLY IN HALLWAY. CONTINUE PLAN OF CARE
[2016-12-24 08:00] VITALS: BP 134/80
--- NOTE | 2016-12-24 09:00 | NUR ---
Alert, calm, denies pain at this time, med compliant, participates in group, nno s/s distress. No s/s adverse reaction to meds. No aggression noted. Cont plan of care including meds and group therapy as ordered.
--- NOTE | 2016-12-24 09:31 | PN ---
PATIENT:DERIC BEARDEN MEDICAL RECORD: [id number] LOCATION:[facility] Lord ADMISSION DATE: 12/18/16 PROGRESS NOTE DATE OF SERVICE: 12/23/2016 SUBJECTIVE: No new complaint. OBJECTIVE: The patient is very pleasant on exam, she is compliant. She expresses the desire to "do some work on the house." On exam, mood is euthymic. Affect is somewhat constricted. Speech is somewhat terse. Content of thought is negative for overt psychosis. Sensorium unchanged. ASSESSMENT: No change in diagnosis. PLAN: 1. Maintain current medication. 2. Continue supportive therapy. TRANSINT:[id number] Voice Confirmation ID: [id number] DOCUMENT ID: [id number] HELLEN CURRY III, MD at 0931 CC: [id number] DICTATION DATE: 12/23/16 1207 ZINC PLATER: 12/23/16 1225 ADM IN [place] [id number] [place] [id number]
[2016-12-24 20:05] VITALS: BP 150/79
--- NOTE | 2016-12-24 21:05 | NUR ---
RECEIVED IN BEDROOM. WALKING ABOUT ROOM GETTING READY FOR BED. CALM AND COOPERATIVE WITH CARE AND ASSESSMENTS. DENIES THOUGHTS OF SELF HARM. ENCOURAGE TO EXPRESS NEEDS. CONTINUE PLAN OF CARE
--- NOTE | 2016-12-25 08:07 | PN ---
PATIENT:DERIC BEARDEN MEDICAL RECORD: [id number] LOCATION:[facility] Lord ADMISSION DATE: 12/18/16 PROGRESS NOTE DATE OF SERVICE: 12/24/2016 SUBJECTIVE: The patient states that she hopes she can be going home soon. OBJECTIVE: The patient was seen and examined by Dr. Daren Sheridan who is her primary care physician. Dr. Sheridan concurred with current treatment plan and diagnosis of dementia. On exam, the patient's mood is very pleasant. Affect is shallow. Speech is somewhat tangential, but fluent a great deal of the time. Content of thought is negative for overt psychosis. Sensorium is unchanged. ASSESSMENT: No change in diagnosis. PLAN: 1. Continue current medications. 2. Continue supportive therapy. TRANSINT:[id number] Voice Confirmation ID: [id number] DOCUMENT ID: [id number] HELLEN CURRY III, MD at 0807 CC: [id number] DICTATION DATE: 12/24/16 1152 IMPORT/EXPORT FREIGHT FORWARDER: 12/24/16 1222 ADM IN [place] [address] [place] [address]
--- NOTE | 2016-12-25 09:45 | NUR ---
B) PATIENT IS PLEASANT, ALERT AND ORIENTED TO PERSON AND PLACE, SHE HAS NO INSIGHT INTO HER ILLNESS OR THE SITUATION. PATIENT AMBULATES INDEPENDENTLY WITH A WALKER. I) PROVIDE PRESCRIBED MEDS. R) PATIENT IS COMPLIANT WITH MEDS AND UNIT MILIEU. P) CONTINUE POC.
[2016-12-25] MEDS ORDERED: FLAGYL500 MG PO (10:24)
[2016-12-25] MEDS ORDERED: VANCOMYCIN250 MG/51 PO (10:25)
[2016-12-25] MEDS ORDERED: ARICEPT5 MG PO (10:25)
[2016-12-25] MEDS ORDERED: ANUSOL-HC 2.5%30 GM TOPICAL (10:30)
[2016-12-25] MEDS ORDERED: VITAMIN B-121000 MCG PO (10:30)
[2016-12-25] MEDS ORDERED: NYSTATIN OINTME15 GM TOPICAL (10:30)
[2016-12-25] MEDS ORDERED: CALMOSEPTINE OI71 GM TOPICAL (10:30)
[2016-12-25] MEDS ORDERED: VITAMIN D31000 UNI2 PO (10:30)
--- NOTE | 2016-12-25 11:55 | NUR ---
PATIENT D/CING HOME TODAY, FAXED D/C ORDER AND MED REC TO DR. COLBY'S OFFICE, CALLED MEDS TO [facility].
[2016-12-25 11:59] VITALS: BP 108/56
--- NOTE | 2016-12-25 13:17 | NUR ---
PATIENT'S BELONGINGS PACKED, DAUGHTER IS HERE TO TAKE HER HOME NOW. PATIENT AMBULATED WITH STAFF TO HER DAUGHTER'S CAR. PATIENT IS NOW D/C'D FROM [facility].
--- NOTE | 2016-12-26 10:07 | DS ---
PATIENT:DERIC BEARDEN :37 MEDICAL RECORD: [id number] DISCHARGE SUMMARY ADMISSION DATE: 12/18/16 DISCHARGE DATE: 12/25/16 DATE OF ADMISSION: 12/18/2016. DATE OF DISCHARGE: 12/25/2016. HISTORY: First [facility] admission for this 81-year-old white female. The patient was admitted from home. She had been seen by nurse practitioner at Dr. Hui's office and had been referred here. The concern was that the patient was acutely suicidal. The patient had been showing signs of depression prior to admission. The patient had history of cerebrovascular disease as well as multiple other medical problems. For further details, please see previously dictated history. COURSE IN THE HOSPITAL: The patient was examined by Dr. Mullen and also by Dr. Daren Sheridan. Dr. Mullen noted the presence of cerebrovascular disease with remote CVA, hypertension, type 2 diabetes, coronary artery disease, glaucoma, gastroesophageal reflux disease, and history of coronary artery bypass graft. Dr. Mullen also noted the presence of dementing signs during his examination. From a medication standpoint, the patient was started on Aricept 5 mg at bedtime for assistance and control of her memory related problems. Aside from this, she was treated very conservatively. She was maintained on other routine medications for her diabetes and other ongoing medical problems. The patient showed a good resolution of her acute dysphoria. She showed no further evidence of suicidality during the hospitalization. Mood for the most part was euthymic. The patient did undergo neuropsychological testing. She scored 10/30 on the [facility] Mental Status exam, which does indicate a very significant level of dementia. By the time of discharge, the patient was felt to be stable. Family elected to have her return home with in-home assistance. FINAL DIAGNOSES: AXIS I: Vascular dementia with behavioral disturbance -- improving. AXIS II: No diagnosis. AXIS III: Type 2 diabetes, cerebrovascular disease, recent urinary tract infection, hypertension, coronary artery disease, gastroesophageal reflux disease, glaucoma. AXIS IV: Moderate. AXIS V: 40. PLAN: 1. The patient is discharged on current medications. 2. Diet and activities as tolerated. 3. Follow up through primary care physician. TRANSINT:[id number] Voice Confirmation ID: [id number] DOCUMENT ID: [id number] DISCHARGE SUMMARY REPORT [id number] DERIC BEARDEN III, CHARLES S MD at 1007 CC: [id number] DICTATION DATE: 12/25/16 1143 LINK TRAINER OPERATOR: 12/25/16 1302 DIS IN 12/25/16 [place] [id number] [place] [address]
== END 2016-12-25 13:19 | disposition home or self-care (01) | DRG 57 ==
LOC: D.PSYCH 11:58
PROVIDERS: ADMIT Psychiatry & Neurology Psychiatry
DX: I69.919 Unspecified symptoms and signs involving cognitive functions following unspecified cerebrovascular disease (principal); F01.51 Vascular dementia, unspecified severity, with behavioral disturbance; A04.72 Enterocolitis due to Clostridium difficile, not specified as recurrent; E11.65 Type 2 diabetes mellitus with hyperglycemia; I10 Essential (primary) hypertension; I25.10 Atherosclerotic heart disease of native coronary artery without angina pectoris; K21.9 Gastro-esophageal reflux disease without esophagitis; H40.9 Unspecified glaucoma; Z74.09 Other reduced mobility; F32.9 Major depressive disorder, single episode, unspecified; Z95.1 Presence of aortocoronary bypass graft

== ENCOUNTER → 2017-01-27 17:48 | Outpatient (CLI) | payer MEDICARE, OTHER ==
[2016-12-19 14:21] VITALS: BMI 24.3
[~2017-01-27 17:48] MED LIST changes: +ACETAMINOPHEN325 MG PO; +ACIDOPHILUS LAC1 CAP PO; +ANUSOL-HC 2.5%30 GM TOPICAL; +ARICEPT5 MG PO; +CALMOSEPTINE OI71 GM TOPICAL; +FLAGYL500 MG PO; +HEALTHYLAX17 GM PO; +LOVENOX40 MG/0.4 SC; +MILK OF MAGNESI30 ML PO; +MIRALAX17 GM PO; +MYLANTA / MAALO30 ML PO; +NOVOLOG100 U/M1 SC; +NYSTATIN OINTME15 GM TOPICAL; +ONDANSETRON4 MG/2 M3 IV; +PROTONIX20 MG PO; +VANCOMYCIN250 MG/51 PO; +VITAMIN B-121000 MCG PO; +VITAMIN D31000 UNI2 PO; +ZOFRAN4 MG PO
== END | disposition home or self-care (01) ==
LOC: D.LABREF 17:48
DX: N39.0 Urinary tract infection, site not specified (principal)

== ENCOUNTER → 2017-07-21 13:47 | Outpatient (CLI) | payer MEDICARE, OTHER ==
[2016-12-19 14:21] VITALS: BMI 24.3
== END | disposition home or self-care (01) ==
LOC: D.US 13:47
DX: I65.23 Occlusion and stenosis of bilateral carotid arteries (principal)

== ENCOUNTER → 2018-01-25 10:50 | Outpatient (CLI) | payer MEDICARE, OTHER ==
[2016-12-19 14:21] VITALS: BMI 24.3
== END | disposition home or self-care (01) ==
LOC: D.US 10:50
DX: I65.23 Occlusion and stenosis of bilateral carotid arteries (principal)

== ENCOUNTER → 2018-05-26 13:59 | Outpatient (CLI) | payer MEDICARE, OTHER ==
[~2018-05-26 13:59] MED LIST changes: +ACETAMINOPHEN500 M1 PO; +CYMBALTA20 MG PO; +ESTRACE 0.0142.5 GM VG; +FLAGYL250 MG; +FLORASTOR250 MG PO; +HYDROCODON-ACE1 EA10 PO; +NORVASC5 MG PO; +OMNICEF125 MG/5 M; +OMNICEF300 MG PO; +PREVALITE POWD231 GM PO; +ULTRAM50 MG PO; +VITAMIN B-12500 MC1 PO
== END | disposition home or self-care (01) ==
LOC: D.HCCARDIO 13:59
DX: I10 Essential (primary) hypertension (principal)

== ENCOUNTER 2018-08-13 15:51 | Inpatient (IN) | payer MEDICARE, OTHER ==
[~2018-08-13] VITALS: Ht 157.5 cm; Wt 49.9 kg
[~2018-08-13 15:51] MED LIST changes: -ACETAMINOPHEN500 M1 PO; -CYMBALTA20 MG PO; -ESTRACE 0.0142.5 GM VG; -FLAGYL250 MG; -FLORASTOR250 MG PO; -HYDROCODON-ACE1 EA10 PO; -NORVASC5 MG PO; -OMNICEF125 MG/5 M; -OMNICEF300 MG PO; -ULTRAM50 MG PO; -VITAMIN B-12500 MC1 PO
[2018-08-13] MEDS ORDERED: OMNICEF125 MG/5 M (16:07)
[2018-08-13] MEDS ORDERED: FLAGYL250 MG (16:07)
[2018-08-13] MEDS ORDERED: NORVASC5 MG PO (16:08)
[2018-08-13] MEDS ORDERED: BAYER CHEWABLE81 MG PO (16:09)
[2018-08-13] MEDS ORDERED: OMNICEF300 MG PO (16:09)
[2018-08-13] MEDS ORDERED: VITAMIN B-12500 MC1 PO (16:11)
[2018-08-13] MEDS ORDERED: CYMBALTA20 MG PO (16:13)
[2018-08-13] MEDS ORDERED: NEURONTIN 300300 MG PO (16:14)
[2018-08-13] MEDS ORDERED: ESTRACE 0.0142.5 GM VG (16:14)
[2018-08-13] MEDS ORDERED: FLORASTOR250 MG PO (16:16)
[2018-08-13] MEDS ORDERED: KLOR-CON M2020 MEQ PO (16:16)
[2018-08-13] MEDS ORDERED: ULTRAM50 MG PO (16:17)
[2018-08-13] MEDS ORDERED: ACETAMINOPHEN500 M1 PO (16:18)
[2018-08-13 17:03] LABS: BASOPHILS 0.3 % (0-2); EOSINOPHILS 1.3 % (0-7); HEMATOCRIT 33.7 % (36.0-48.0); HEMOGLOBIN 10.9 g/dL (12-16); IMMATURE GRANULOCYTES 0.7 % (0-5); LYMPHOCYTES 23.8 % (15-50); MCH 29.1 pg (26.0-34.0); MCHC 32.3 g/dL (31.0-37.0); MCV 90.1 fL (80.0-100.0); MONOCYTES 10.8 % (2-11); NEUTROPHILS 63.1 % (40-80); RBC 3.74 10x6/uL (4.00-5.40); RDW 15.9 % (11.5-14.5); WBC 7.5 10x3/uL (4.8-10.8)
[2018-08-13 17:10] LABS: PLATELET COUNT 383 10x3/uL (130-400)
[2018-08-13 17:17] LABS: ALBUMIN 2.5 g/dL (3.4-5.0); ALKALINE PHOSPHATASE 175 U/L (46-116); ALT (SGPT) 9 U/L (10-68); CALC OSMOLALITY 281 mosm/kg (275-300); CARBON DIOXIDE 32.1 mmol/L (21.0-32.0); CHLORIDE - SERUM 104 mmol/L (98-107); CREATININE - SERUM 0.8 mg/dL (0.6-1.3); GLUCOSE 117 mg/dL (74-106); POTASSIUM - SERUM 4.1 mmol/L (3.5-5.1); PROTEIN - SERUM 6.7 g/dL (6.4-8.2); SODIUM 142 mmol/L (136-145); UREA NITROGEN 8 mg/dL (7-18); eGFR NON AFRICAN AMERICAN 73 mL/min (90-120)
[2018-08-13 17:19] LABS: INR 0.97 (0.85-1.17); PROTIME 12.4 SECONDS (11.6-15.0)
[2018-08-13 17:34] VITALS: BP 177/66
[2018-08-13 17:36] LABS: CKMB 0.3 U/L (0.0-3.6); CREATINE KINASE 23 UL (21-215); TROPONIN-I 0.031 ng/mL (0.000-0.060)
[2018-08-13 18:25] LABS: APPEARANCE CLEAR (CLEAR); BILIRUBIN NEGATIVE (NEGATIVE); COLOR YELLOW (YELLOW); GLUCOSE NEGATIVE (NEGATIVE); KETONE NEGATIVE (NEGATIVE); NITRITE NEGATIVE (NEGATIVE); PROTEIN TRACE mg/dL (NEGATIVE); UROBILINOGEN NORMAL (NORMAL)
[2018-08-13 18:26] LABS: RED CELLS - URINE 0-5 /hpf (0-5); WHITE CELLS - URINE 0-5 /hpf (0-5)
[2018-08-13 18:27] LABS: BACTERIA FEW /hpf (NONE SEEN); EPITHELIAL CELLS OCC /hpf (0-5)
[2018-08-13 18:36] VITALS: BP 176/78
--- NOTE | 2018-08-13 19:06 | NUR ---
BS REPORT TO BOBBI BARAJAS BY SBAR FORMAT
--- NOTE | 2018-08-13 19:26 | NUR ---
PT ASSISTED WITH BEDPAN.
--- NOTE | 2018-08-13 20:45 | NUR ---
REPORT CALLED TO KAROLYN PT'S ROOM ON FLOOR STILL DIRTY.
--- NOTE | 2018-08-13 21:46 | NUR ---
PT ARRIVED ON UNIT VIA STRETCHER ESCORTED BY ER STAFF AND FAMILY MEMBER. TRANSFERRED TO BED AND POSITIONED FOR COMFORT. ORIENTED TO ROOM AND CALL LIGHT. BED ALARM, YELLOW GOWN, GRIPPER SOCKS, AND YELLOW ARM BANG PLACED PER FALL PROTOCOL. WILL MONITOR FOR NEEDS.
[2018-08-13] MEDS ORDERED: HYDROCODON-ACE1 EA10 PO (21:53)
[2018-08-13 22:59] VITALS: BP 177/49; BMI 20.1
--- NOTE | 2018-08-13 23:19 | NUR ---
ADMISSION ASSESSMENT AND HISTORY COMPLETE.
[2018-08-14 04:00] VITALS: BP 168/53
--- NOTE | 2018-08-14 05:08 | NUR ---
PT PULLED OUT IV WITH CATHETER TIP INTACT.
--- NOTE | 2018-08-14 05:09 | NUR ---
PT BATHED AND ALL LINENS AND GOWN CHANGED DUE TO INCONTINENCE. POSITIONED FOR COMFORT.
[2018-08-14 07:51] LABS: BASOPHILS 0.6 % (0-2); EOSINOPHILS 1.5 % (0-7); HEMATOCRIT 31.6 % (36.0-48.0); HEMOGLOBIN 10.2 g/dL (12-16); IMMATURE GRANULOCYTES 0.6 % (0-5); LYMPHOCYTES 24.4 % (15-50); MCH 29.1 pg (26.0-34.0); MCHC 32.3 g/dL (31.0-37.0); MONOCYTES 8.5 % (2-11); NEUTROPHILS 64.4 % (40-80); PLATELET COUNT 380 10x3/uL (130-400); RBC 3.51 10x6/uL (4.00-5.40); RDW 15.9 % (11.5-14.5); WBC 6.7 10x3/uL (4.8-10.8)
--- NOTE | 2018-08-14 07:51 | NUR ---
PT ONLY ORIENTED TO SELF. BREATH SOUNDS CLEAR BILAT. TELEMETRY IN PLACE. NO IV ACCESS AT THIS TIME. PT REPORTING NO PAIN. BED LOW, CALL LIGHT IN REACH. NO OTHER NEEDS AT THIS TIME.
[2018-08-14 08:08] LABS: ANION GAP 8.7 mmol/L (8-16); CALCIUM 8.5 mg/dL (8.5-10.1); CARBON DIOXIDE 32.8 mmol/L (21.0-32.0); CREATININE - SERUM 0.8 mg/dL (0.6-1.3); MAGNESIUM - SERUM 1.2 mg/dL (1.8-2.4); PHOSPHOROUS 3.3 mg/dL (2.5-4.9); POTASSIUM - SERUM 3.5 mmol/L (3.5-5.1)
[2018-08-14 08:43] VITALS: BP 172/51
[2018-08-14 12:32] VITALS: BP 104/55
[2018-08-14 13:15] VITALS: Ht 157.5 cm; Wt 49.9 kg
[2018-08-14 16:59] VITALS: BP 172/61
--- NOTE | 2018-08-14 19:00 | NUR ---
REPORT RECEIVED AND CARE OF PT ASSUMED. PT LYING IN LOW FERGUSON'S POSITION PULLING ON DRESSING AROUND IV IN LEFT HAND. ATTEMPTED TO DISTRACT HER FROM PULLING OUT. BED ALARM IN PLACE SIDE RAILS UP X3 FOR SAFETY.
--- NOTE | 2018-08-14 19:20 | NUR ---
BED ALARM SOUNDING. PT TRYING TO GET OUT OF BED. ASSISTED UP TO TOILET. PT VOIDED AND HAD BM. LEAD NET SOFTWARE DEVELOPER WITH ME IN ROOM...TURNED FROM PT TO GET WASH CLOTH FROM LEAD NET SOFTWARE DEVELOPER AND PT STOOD UP AND FELL INTO CORNER BEHIND TOILET. NO INJURIES VISUALIZED AND PT STATES SHE IS NOT HURT. ALMOST CARRIED PT BACK TO BED AND POSITIONED FOR COMFORT. SIDE RAILS UP X3 AND BED ALARM IN USE FOR SAFETY.
--- NOTE | 2018-08-14 19:25 | NUR ---
NOTIFIED BAIT DIGGER OF FALL.
--- NOTE | 2018-08-14 19:30 | NUR ---
CALLED PT'S DAUGHTER TO INFORM OF FALL. SHE STATES THAT WE CAN DO ANYTHING INCLUDING RESTRAINTS IF NECCESSARY TO KEEP PT SAFE. CALLED OYSTER PLANTER PHYSICIAN AND SPOKE TO HI BURLESON.
--- NOTE | 2018-08-14 20:01 | NUR ---
HS MEDICATIONS GIVEN. GAVE ULTRAM TO SEE IF THAT WOULD RELAX PT, SHE IS VERY FIGITY. WILL MONITOR FOR NEEDS.
[2018-08-14 20:40] VITALS: BP 183/64
--- NOTE | 2018-08-14 22:21 | NUR ---
PT RESTING IN LOW FERGUSON'S POSITION WITH EYES CLOSED. SIDE RAILS UP X3 AND BED ALARM IN USE FOR SAFETY.
--- NOTE | 2018-08-14 23:28 | NUR ---
BED ALARM SOUNDING EVERY FEW MINUTES...PT MOVING AROUND IN BED. WILL CONTINUE TO MONITOR CLOSELY FOR SAFETY.
--- NOTE | 2018-08-15 03:02 | NUR ---
PT HAD INCONTINENCE OF BOWEL AND BLADDER. BATHED AND ALL LINENS AND GOWN CHANGED. POSITIONED FOR COMFORT. BED ALARM ACTIVATED. ALL TELEMETRY PADS CHANGED. SIDE RAILS UP X3 FOR SAFETY. CALL LIGHT WITHIN REACH.
--- NOTE | 2018-08-15 03:05 | NUR ---
PT PULLED OUT IV. WILL WAIT TO RE-SITE TILL SHE NEEDS IV ABX AGAIN.
[2018-08-15 05:44] VITALS: BP 158/63
--- NOTE | 2018-08-15 07:14 | NUR ---
PT ALERT TO SELF ONLY. BREATH SOUNDS CLEAR BILAT. TELEMETRY IN PLACE. NO IV ACCESS AT THIS TIME. BED LOW, CALL LIGHT IN REACH. NO OTHER NEEDS AT THIS TIME.
[2018-08-15 07:24] LABS: ANION GAP 10.4 mmol/L (8-16); CALCIUM 8.5 mg/dL (8.5-10.1); CARBON DIOXIDE 30.4 mmol/L (21.0-32.0); CREATININE - SERUM 0.8 mg/dL (0.6-1.3); MAGNESIUM - SERUM 1.4 mg/dL (1.8-2.4); PHOSPHOROUS 3.3 mg/dL (2.5-4.9); POTASSIUM - SERUM 3.8 mmol/L (3.5-5.1)
[2018-08-15 07:33] LABS: BASOPHILS 0.3 % (0-2); EOSINOPHILS 1.1 % (0-7); HEMATOCRIT 29.3 % (36.0-48.0); HEMOGLOBIN 9.7 g/dL (12-16); IMMATURE GRANULOCYTES 0.5 % (0-5); LYMPHOCYTES 26.4 % (15-50); MCH 29.3 pg (26.0-34.0); MCHC 33.1 g/dL (31.0-37.0); MCV 88.5 fL (80.0-100.0); MEAN PLATELET VOLUME 9.8 fL (7.4-10.4); MONOCYTES 11.1 % (2-11); NEUTROPHILS 60.6 % (40-80); PLATELET COUNT 403 10x3/uL (130-400); RBC 3.31 10x6/uL (4.00-5.40); RDW 15.8 % (11.5-14.5); WBC 6.5 10x3/uL (4.8-10.8)
[2018-08-15 10:25] VITALS: BP 163/54
[2018-08-15 15:42] VITALS: BP 151/49
--- NOTE | 2018-08-15 19:00 | NUR ---
REPORT RECEIVED AND CARE OF PT ASSUMED. PT LYING IN SUPINE POSITION VISITING WITH FAMILY MEMBERS. TELEMETRY IN PLACE AND READING SR AT THIS ASSESSMENT. WILL MONITOR FOR NEEDS. BED ALARM IN USE.
--- NOTE | 2018-08-15 20:09 | NUR ---
HS MEDICATIONS GIVEN. WILL CONTINUE TO MONITOR FOR NEEDS.
--- NOTE | 2018-08-15 20:45 | NUR ---
PT CLEANED AND BEDPAD CHANGED DUE TO INCONTINENCE OF BOWEL AND BLADDER. POSITIONED FOR COMFORT.
[2018-08-15 21:22] VITALS: BP 142/46
[2018-08-16 01:06] VITALS: BP 155/59
[2018-08-16 04:27] LABS: BASOPHILS 0.4 % (0-2); EOSINOPHILS 0.7 % (0-7); HEMATOCRIT 30.9 % (36.0-48.0); HEMOGLOBIN 10.1 g/dL (12-16); IMMATURE GRANULOCYTES 0.3 % (0-5); LYMPHOCYTES 26.1 % (15-50); MCH 29.1 pg (26.0-34.0); MCHC 32.7 g/dL (31.0-37.0); MEAN PLATELET VOLUME 9.7 fL (7.4-10.4); MONOCYTES 11.1 % (2-11); NEUTROPHILS 61.4 % (40-80); PLATELET COUNT 453 10x3/uL (130-400); RBC 3.47 10x6/uL (4.00-5.40); RDW 16.4 % (11.5-14.5); WBC 7.1 10x3/uL (4.8-10.8)
[2018-08-16 04:56] VITALS: BP 157/57
[2018-08-16 05:02] LABS: ANION GAP 9.9 mmol/L (8-16); CALCIUM 8.5 mg/dL (8.5-10.1); CARBON DIOXIDE 31.2 mmol/L (21.0-32.0); CREATININE - SERUM 0.8 mg/dL (0.6-1.3); MAGNESIUM - SERUM 1.4 mg/dL (1.8-2.4); PHOSPHOROUS 2.8 mg/dL (2.5-4.9); POTASSIUM - SERUM 4.1 mmol/L (3.5-5.1)
--- NOTE | 2018-08-16 08:00 | NUR ---
PATIENT IN BED WITH EYES CLOSED RESTING QUIETLY. CALL LIGHT WITHIN REACH.
[2018-08-16 10:15] VITALS: BP 154/58
[2018-08-16 12:28] VITALS: BP 162/42
--- NOTE | 2018-08-16 13:02 | MORECARE ---
CASE MANAGEMENT DISCHARGE SUMMARY PATIENT: DERIC BEARDEN UNIT: [id number] ADM DATE: 08/13/18 AGE: 82 : 36 SEX: F ROOM/BED: D.2203 AUTHOR: BOONE MOYA PHYSICIAN: REFERRING PHYSICIAN: JANE GUSTAFSON DO DATE OF SERVICE: 08/16/18 Discharge Plan Patient Name: DERIC BEARDEN Facility: [facility]:[place] : 1935 Planned Disposition: Home Hlth Svc w Plan Readm Anticipated Discharge Date: Discharge Date: Expected LOS: Initial Reviewer: [email or web address] Initial Review Date: 08/16/2018 Generated: 08/16/18 2:02 pm Comments DCP- Discharge Planning Updated by [email or web address]: Malaika Dunham on 08/16/18 11:[address] Patient Name: DERIC BEARDEN Admission Status: ER Accout number: [id number] Admission Date: 08-13-2018 : 1935 Admission Diagnosis: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 DAUGHTER STATES SHE HAS WALKER AT HOME AND WAS USING [facility]. PATIENT AND FAMILY WOULD LIKE INPATIENT REHAB. CM TO FOLLOW AND ASSIST. Labor And Employment Paralegal: Malaika Dunham DCPIA - Discharge Planning Initial Assessment Updated by [email or web address]: Malaika Dunham on 08/16/18 12:56 pm * Is the patient Alert and Oriented? Yes * PCP LASHA * Pharmacy [facility] * Preadmission Environment Home Alone * ADLs Independent * Equipment Walker * List name and contact numbers for known caregivers / representatives who currently or will assist patient after discharge: PERCY MEYER, * Community resources currently utilized Home Health * Additional services required to return to the preadmission environment? No * Can the patient safely return to the preadmission environment? Yes * Has this patient been hospitalized within the prior 30 days at any hospital? No External Providers [email or web address] Next Contact Date: Service Request Date: Service Type: Resolution: Reviewer: Comments: Patient Name: DERIC BEARDEN Page [phone] at 1302 All edits/amendments must be made on the electronic document DICTATION DATE: 08/16/18 1302 SPEEDER OPERATOR: PADMAJA 08/16/18 1302 RPT#: [id number] DC DATE: STATUS: ADM IN [facility] [address] [place] [address] END OF REPORT
--- NOTE | 2018-08-16 13:24 | NUR ---
Rehab Prescreening Consult recieved and the chart has been reviewed. She has orders pending for an MRI T-Spine and MRI L-Spine. Will need to see if any further testing or workup is going to be required prior to discussing the ARU with patient and or family. Rosnia Varma RN Clinical Liaison, Rehab
--- NOTE | 2018-08-16 15:15 | NUR ---
PATIENT BECAME RESTLESS AND TOOK OFF HEADPHONES AND TRIED TO GET OUT OF MRI SCANNER. CAN TRY AGAIN TOMORROW.
--- NOTE | 2018-08-16 16:00 | NUR ---
IV STARTED IN LEFT WRIST X 1 STICKS AT THIS TIME. TOLERATED WITH SMALL AMOUNT OF PAIN. CALL LIGHT WITHIN REACH.
[2018-08-16 17:30] VITALS: BP 148/58
--- NOTE | 2018-08-16 17:45 | NUR ---
PATIENT PULLED IV OUT. LEAVING OUT AT THIS TIME. PATIENT RECIEVED ALL OF ANTIBIOTIC TODAY. WILL CONTINUE TO MONITOR. CALL LIGHT WITHIN REACH.
--- NOTE | 2018-08-16 20:00 | NUR ---
ALERT ORIENTIATED TO SELF, DENIES PAIN, SEE SHIFT ASSESSMENT, CALL LIGHT IN REACH
[2018-08-16 20:31] VITALS: BP 151/56
[2018-08-17] VITALS (7 sets, daily range): BP systolic 132–163; BP diastolic 51–81
--- NOTE | 2018-08-17 01:20 | NUR ---
PT FOUND ON KNEES ON FLOOR BESIDE BED, STATES I FORGOT I COULDNT WALK, DENIES PAIN, NO APPARENT INJURY, ASSISTED BACK TO BED , POSY ALARM IN USE SIDE RAILS UP X 2
--- NOTE | 2018-08-17 01:50 | NUR ---
YOEL PHILLIPS NOTIFIED OF FOUND ON FLOOR, NO ORDERS RECIEVED AT THIS TIME. ADRYAN ADAN NOTIFIED, MITCH DAUGHTER NOTIFIED
[2018-08-17 06:27] LABS: BASOPHILS 0.3 % (0-2); EOSINOPHILS 0.9 % (0-7); HEMATOCRIT 31.8 % (36.0-48.0); HEMOGLOBIN 10.4 g/dL (12-16); IMMATURE GRANULOCYTES 0.4 % (0-5); LYMPHOCYTES 25.7 % (15-50); MCH 29.3 pg (26.0-34.0); MCHC 32.7 g/dL (31.0-37.0); MCV 89.6 fL (80.0-100.0); MEAN PLATELET VOLUME 9.7 fL (7.4-10.4); MONOCYTES 9.7 % (2-11); PLATELET COUNT 470 10x3/uL (130-400); RBC 3.55 10x6/uL (4.00-5.40); RDW 16.4 % (11.5-14.5); WBC 7.4 10x3/uL (4.8-10.8)
[2018-08-17 06:57] LABS: ANION GAP 11.1 mmol/L (8-16); CALCIUM 8.8 mg/dL (8.5-10.1); CARBON DIOXIDE 29.7 mmol/L (21.0-32.0); CREATININE - SERUM 0.9 mg/dL (0.6-1.3); MAGNESIUM - SERUM 1.6 mg/dL (1.8-2.4); PHOSPHOROUS 2.9 mg/dL (2.5-4.9); POTASSIUM - SERUM 3.8 mmol/L (3.5-5.1)
--- NOTE | 2018-08-17 07:45 | NUR ---
PATIENT IN BED WITH IV INTACT. NO COMPLAINTS OR SIGNS OF DISTRESS. CALL LIGHT WITHIN REACH. BA ON.
--- NOTE | 2018-08-17 12:00 | NUR ---
PATIENT SITTING UP IN BED EATING. N O COMPLAINTS OR SIGNS OF DISTRESS. BED ALARM ON. CALL LIGHT WITHIN REACH.
--- NOTE | 2018-08-17 12:58 | NUR ---
NUTRITION F/U TOLERATING ADA DIET WITH GOOD INTAKE WHEN ASSISTED BY FAMILY. WILL CONTINUE TO PROVIDE DIET AND GLUCERNA SHAKE. MONITOR PO INTAKE. RD FOLLOWING
--- NOTE | 2018-08-17 13:56 | NUR ---
Rehab Note- Visited with the patient and her daughter. They are very interested in [facility] Acute Inpatient Rehab when medically stable and ready for discharge from the acute hospital. States that Dr. Sheridan is her PCP. WIll continue to follow at this time. Thank you for this referral! Renetta Hayes RN Clinical Liaison, [facility] Rehab
--- NOTE | 2018-08-17 20:00 | NUR ---
ALERT CONFUSED, RESTING IN BED, SEE SHIFT ASSESSMENT, RAPAHEL MAT IN PLACE, CALL LIGHT IN REACH, NO APPARENT DISTRESS
[2018-08-18 00:28] VITALS: BP 166/62
[2018-08-18 04:45] VITALS: BP 175/73
[2018-08-18 04:50] LABS: BASOPHILS 0.3 % (0-2); EOSINOPHILS 1.5 % (0-7); HEMATOCRIT 31.3 % (36.0-48.0); HEMOGLOBIN 10.3 g/dL (12-16); IMMATURE GRANULOCYTES 0.3 % (0-5); LYMPHOCYTES 32.9 % (15-50); MCH 29.4 pg (26.0-34.0); MCHC 32.9 g/dL (31.0-37.0); MCV 89.4 fL (80.0-100.0); MEAN PLATELET VOLUME 9.6 fL (7.4-10.4); MONOCYTES 11.6 % (2-11); NEUTROPHILS 53.4 % (40-80); PLATELET COUNT 477 10x3/uL (130-400); RDW 16.5 % (11.5-14.5); WBC 6.9 10x3/uL (4.8-10.8)
[2018-08-18 05:15] LABS: ANION GAP 8.4 mmol/L (8-16); CALCIUM 8.8 mg/dL (8.5-10.1); CARBON DIOXIDE 29.8 mmol/L (21.0-32.0); CREATININE - SERUM 0.8 mg/dL (0.6-1.3); MAGNESIUM - SERUM 1.6 mg/dL (1.8-2.4); PHOSPHOROUS 3.6 mg/dL (2.5-4.9); POTASSIUM - SERUM 4.2 mmol/L (3.5-5.1)
[2018-08-18 07:26] LABS: APPEARANCE CLEAR (CLEAR); BILIRUBIN NEGATIVE (NEGATIVE); COLOR YELLOW (YELLOW); GLUCOSE NEGATIVE (NEGATIVE); KETONE NEGATIVE (NEGATIVE); NITRITE NEGATIVE (NEGATIVE); PROTEIN NEGATIVE (NEGATIVE); SPECIFIC GRAVITY 1.015 (1.005-1.020); UROBILINOGEN NORMAL (NORMAL)
[2018-08-18 07:27] LABS: BACTERIA FEW /hpf (NONE SEEN); EPITHELIAL CELLS OCC /hpf (0-5); GRANULAR CAST RARE /lpf (NONE SEEN)
--- NOTE | 2018-08-18 07:45 | NUR ---
PATIENT SLEEPING. LUNGS CLEAR BILATERALLY IN ALL CANNON. HEART SOUNDS S1 AND S2 HEARD IN ALL CANNON. BOWEL SOUNDS ACTIVE X 4. SKIN INTACT WITHOUT REDNESS. NO IV PER ORDER. RAPHAEL ALARM ON. BED LOW. CALL CAGLE AND PERSONAL ITEMS IN REACH. WILL CONTINUE TO MONITOR.
[2018-08-18 09:36] VITALS: BP 164/81
--- NOTE | 2018-08-18 12:33 | NUR ---
SITTING IN BED EATING LUNCH. DAUGHTER AT BEDSIDE ASSISTING PATIENT. DENIES NEEDS.
[2018-08-18 13:04] VITALS: BP 139/64
[2018-08-18 17:43] VITALS: BP 129/63
--- NOTE | 2018-08-18 18:17 | NUR ---
RESTING IN BED. DAUGHTER AT BEDSIDE. DENIES PAIN. DENIES NEEDS. BED LOW. CALL CAGLE AND PERSONAL ITEMS IN REACH. WILL CONTINUE TO MONITOR.
[2018-08-18 21:00] VITALS: BP 125/69
--- NOTE | 2018-08-18 21:00 | NUR ---
PTs DAUGHTER IN ROOM, STATED SHE JUST GAVE PT HER QUESTRAN. INFORMED HER THE ORDER IS IN HER CHART NOW, SO IT WILL BE GIVEN BY THE NURSES STARTING TOMORROW. PT IS NOT SPEAKING, BUT SHAKES HEAD YES AND NO APPROPRIATELY. WILL CONTINUE TO MONITOR.
--- NOTE | 2018-08-19 04:13 | NUR ---
I have reviewed this patient and I concur with the Shift Assessment completed by the Licensed Practical Nurse today this shift.
[2018-08-19 04:58] VITALS: BP 134/70; BP 134/80
[2018-08-19 06:13] LABS: ANION GAP 10.5 mmol/L (8-16); CALCIUM 8.7 mg/dL (8.5-10.1); CARBON DIOXIDE 28.8 mmol/L (21.0-32.0); CREATININE - SERUM 0.9 mg/dL (0.6-1.3); POTASSIUM - SERUM 4.3 mmol/L (3.5-5.1)
[2018-08-19 06:15] LABS: BASOPHILS 0.8 % (0-2); EOSINOPHILS 1.9 % (0-7); HEMATOCRIT 32.4 % (36.0-48.0); HEMOGLOBIN 10.6 g/dL (12-16); IMMATURE GRANULOCYTES 0.2 % (0-5); LYMPHOCYTES 34.7 % (15-50); MCH 29.5 pg (26.0-34.0); MCHC 32.7 g/dL (31.0-37.0); MCV 90.3 fL (80.0-100.0); MEAN PLATELET VOLUME 9.5 fL (7.4-10.4); MONOCYTES 12.8 % (2-11); NEUTROPHILS 49.6 % (40-80); PLATELET COUNT 450 10x3/uL (130-400); RBC 3.59 10x6/uL (4.00-5.40); RDW 16.6 % (11.5-14.5); WBC 6.4 10x3/uL (4.8-10.8)
--- NOTE | 2018-08-19 07:37 | NUR ---
RESTING IN BED. ALERT AND ORIENTED TO SELF. LUNGS CLEAR BILATERALLY IN ALL CANNON. HEART SOUNDS S1 AND S2 HEARD IN ALL CANNON. BOTTOM RED BUT NO BREAKDOWN NOTED. TURNED TO RIGHT SIDE. NO IV. RAPHAEL ALARM ON. CALL CAGLE AND PERSONAL ITEMS IN REACH. BED LOW. WILL CONTINUE TO MONITOR.
[2018-08-19 08:30] VITALS: BP 165/72
--- NOTE | 2018-08-19 09:00 | NUR ---
NOTIFIED PHARMACY PATIENT FLORANEX NOT AVAILABLE.
--- NOTE | 2018-08-19 10:41 | NUR ---
PATIENT SLEEPING AND SOMEWHAT DIFFICULT TO AROUSE. SNORING. DAUGHTER AT BEDSIDE CONCERED. VITALS STABLE. BP 162/60. HR 74. TEMP 98.6. O2 95% ON ROOM AIR. BLOOD SUGAR 144. WHITE COUNT WNL. NO SEDATIVE MEDICATIONS GIVEN TO PATIENT. WILL CONTINUE TO MONITOR.
--- NOTE | 2018-08-19 11:01 | NUR ---
PATIENT UP WALKING WITH PT.
--- NOTE | 2018-08-19 11:05 | NUR ---
NOTIFIED PHARMACY STILL NEED FLORANEX. STATED WILL BRING.
[2018-08-19 12:55] VITALS: BP 162/64
--- NOTE | 2018-08-19 13:00 | NUR ---
ATE 25% OF LUNCH.
--- NOTE | 2018-08-19 13:18 | MORECARE ---
CASE MANAGEMENT DISCHARGE SUMMARY PATIENT: DERIC BEARDEN UNIT: [id number] ADM DATE: 08/13/18 AGE: 82 : 36 SEX: F ROOM/BED: D.2203 AUTHOR: BOONE MOYA PHYSICIAN: REFERRING PHYSICIAN: JANE GUSTAFSON DO DATE OF SERVICE: 08/19/18 Discharge Plan Patient Name: DERIC BEARDEN Facility: [facility]:[place] : 1935 Planned Disposition: Inpatient Rehab Anticipated Discharge Date: Discharge Date: Expected LOS: Initial Reviewer: [id number] Initial Review Date: 08/16/2018 Generated: 08/19/18 2:17 pm DCP- Discharge Planning Updated by [email or web address]: Malaika Dunham on 08/16/18 11:[address] Patient Name: DERIC BEARDEN Admission Status: ER Accout number: [id number] Admission Date: 08-13-2018 : 1935 Admission Diagnosis: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 DAUGHTER STATES SHE HAS WALKER AT HOME AND WAS USING [facility]. PATIENT AND FAMILY WOULD LIKE INPATIENT REHAB. CM TO FOLLOW AND ASSIST. Social Worker Aide: Malaikaalejandra Dunham DCPIA - Discharge Planning Initial Assessment Updated by [email or web address]: Malaika Dunham on 08/16/18 12:56 pm * Is the patient Alert and Oriented? Yes * PCP LASHA * Pharmacy [facility] * Preadmission Environment Home Alone * ADLs Independent * Equipment Walker * List name and contact numbers for known caregivers / representatives who currently or will assist patient after discharge: MALAIKA DAUGHTER, * Community resources currently utilized Home Health * Additional services required to return to the preadmission environment? No * Can the patient safely return to the preadmission environment? Yes * Has this patient been hospitalized within the prior 30 days at any hospital? No Coverage Notice Reviewer: [id number] Vinayak Nunes Notice Issued Date-Time: 08/19/2018 10:30 Notice Type: IM Discharge Notice Notice Delivered To: Family Member Relationship to Patient: Daughter Mold Design Engineer Name: MALAIKA LUJAN Delivery Method: HAND - Hand Delivered Nirmala Days: Prior Verbal Notification: Recipient Understood Notice: Yes Recipient Signature: Yes Med Rec Note Co-signed by Attending: Coverage Notice Comment: Last DP export: 08/16/18 12:02 pm Patient Name: DERIC BEARDEN Page 78909 at 1318 All edits/amendments must be made on the electronic document DICTATION DATE: 08/19/18 1317 ASSISTANT STORE MANAGER TRAINEE: PADMAJA 08/19/18 1317 RPT#: [id number] DC DATE: STATUS: ADM IN [facility] [address] [place] [address] END OF REPORT
--- NOTE | 2018-08-19 13:25 | MORECARE ---
CASE MANAGEMENT DISCHARGE SUMMARY PATIENT: DERIC BEARDEN UNIT: [id number] ADM DATE: 08/13/18 AGE: 82 : 36 SEX: F ROOM/BED: D.2203 AUTHOR: NITADOC PHYSICIAN: REFERRING PHYSICIAN: JANE GUSTAFSON DO DATE OF SERVICE: 08/19/18 Discharge Plan Patient Name: DERIC BEARDEN [facility] [facility] 1935 Planned Disposition: Inpatient Rehab Anticipated Discharge Date: Discharge Date: Expected LOS: Initial Reviewer: [id number] Initial Review Date: 08/16/2018 Generated: 08/19/18 2:25 pm Comments DCP- Discharge Planning Updated by [email or web address]: Gordon Nunes on 08/19/18 12:[address] Patient Name: DERIC BEARDEN Encounter No: [id number] : 1935 Primary Insurance: MEDICARE A & B Anticipated DC Date: Planned Disposition: Inpatient Rehab External Planned Provider: [facility] DCP follow-up note: CM RECEIVED REQUEST TO MEET WITH PT AND DAUGHTER IN ROOM. CM MET WITH PT AND DAUGHTER IN ROOM. PT'S DAUGHTER WANTED TO MAKE SURE THAT [facility] WAS STILL CONSIDERING PT FOR REHAB AND ASKED IF SHE NEEDED TO DO ANYTHING FURTHER. CM REVIEWED CHART, [facility] NOT INDICATES THEY ARE STILL FOLLOWING. CM NOTIFIED DAUGHTER OF THIS AND INFORMED HER THAT NO DETERMINATION HAS YET BEEN REACHED AND THEY ARE WAITING ON MEDICAL STABILITY AND WILL CONTINUE TO MONITOR PT'S PROGRESS WITH THERAPY TO ENSURE THAT CAN TOLERATE THE THERAPY AND FULLY PARTICIPATE IF ACCEPTED. DAUGHTER THANKED CM. IMPORTANT MESSAGE FROM MEDICARE PROVIDED AND EXPLAINED. CM WAITING ON MEDICAL STABILITY AND ADMISSION DETERMINATION FROM [facility]. SUKH Roche DCP- Discharge Planning Updated by [id number]: Malaika Dunham on 08/16/18 11:[address] Patient Name: DERIC BEARDEN Admission Status: ER Accout number: [id number] Admission Date: 08-13-2018 : 1935 Admission Diagnosis: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 DAUGHTER STATES SHE HAS WALKER AT HOME AND WAS USING [facility]. PATIENT AND FAMILY WOULD LIKE INPATIENT REHAB. CM TO FOLLOW AND ASSIST. Blood Bank Assistant: Malaika Dunham DCPIA - Discharge Planning Initial Assessment Updated by [id number]: Malaika Dunham on 08/16/18 12:56 pm * Is the patient Alert and Oriented? Yes * PCP LASHA * Pharmacy [facility] * Preadmission Environment Home Alone * ADLs Independent * Equipment Walker * List name and contact numbers for known caregivers / representatives who currently or will assist patient after discharge: MALAIKA, DAUGHTER, * Community resources currently utilized Home Health * Additional services required to return to the preadmission environment? No * Can the patient safely return to the preadmission environment? Yes * Has this patient been hospitalized within the prior 30 days at any hospital? No Coverage Notice Reviewer: [id number] Vinayak Nunes Notice Issued Date-Time: 08/19/2018 10:30 Notice Type: IM Discharge Notice Notice Delivered To: Family Member Relationship to Patient: Daughter Mine Equipment Design Engineer Name: MALAIKA LUJAN Delivery Method: HAND - Hand Delivered Nirmala Days: Prior Verbal Notification: Recipient Understood Notice: Yes Recipient Signature: Yes Med Rec Note Co-signed by Attending: Coverage Notice Comment: Last DP export: 08/19/18 12:17 pm Patient Name: DERIC BEARDEN Page 14846 at 1325 All edits/amendments must be made on the electronic document DICTATION DATE: 08/19/18 1324 DRILL HAND: PADMAJA 08/19/18 1324 RPT#: [id number] DC DATE: STATUS: ADM IN [facility] [address] [place] [address] END OF REPORT
--- NOTE | 2018-08-19 13:56 | NUR ---
RESTING IN BED. DENIES PAIN. DENIES NEEDS. WILL CONTINUE TO MONITOR.
--- NOTE | 2018-08-19 16:31 | NUR ---
RESTING IN BED. DENIES PAIN. DENIES NEEDS. WILL CONTINUE TO MONITOR.
[2018-08-19 16:38] VITALS: BP 132/63
--- NOTE | 2018-08-19 18:28 | NUR ---
SLEEPING. FALL PRECAUTIONS IN PLACE. CALL CAGLE AND PERSONAL ITEMS IN REACH.
--- NOTE | 2018-08-19 19:30 | NUR ---
PT ALERT, ORIENTED TO SELF. SAYS FEW WORDS, BUT FOLLOWS CAN COMMANDS. STATES SHE ATE ALL HER DINNER. FSBS 133, ENCOURAGED PT TO TURN TO HER OTHER SIDE, PT DENIES FURTHER NEEDS, WILL CONTINUE TO MONITOR.
[2018-08-19 20:00] VITALS: BP 119/63
[2018-08-20] VITALS: BP 116/71
--- NOTE | 2018-08-20 03:09 | NUR ---
I have reviewed this patient and I concur with the Shift Assessment completed by the Licensed Practical Nurse today this shift.
[2018-08-20 04:00] VITALS: BP 151/81
[2018-08-20 04:02] LABS: BASOPHILS 0.7 % (0-2); EOSINOPHILS 1.6 % (0-7); HEMATOCRIT 33.4 % (36.0-48.0); HEMOGLOBIN 10.7 g/dL (12-16); IMMATURE GRANULOCYTES 0.1 % (0-5); LYMPHOCYTES 35.1 % (15-50); MCH 29.2 pg (26.0-34.0); MCV 91.3 fL (80.0-100.0); MEAN PLATELET VOLUME 9.5 fL (7.4-10.4); MONOCYTES 13.6 % (2-11); NEUTROPHILS 48.9 % (40-80); PLATELET COUNT 423 10x3/uL (130-400); RBC 3.66 10x6/uL (4.00-5.40); RDW 16.9 % (11.5-14.5)
[2018-08-20 04:21] LABS: ANION GAP 9.8 mmol/L (8-16); CALCIUM 8.9 mg/dL (8.5-10.1); CARBON DIOXIDE 30.8 mmol/L (21.0-32.0); POTASSIUM - SERUM 4.6 mmol/L (3.5-5.1)
[2018-08-20 04:25] LABS: CREATININE - SERUM 1.2 mg/dL (0.6-1.3)
[2018-08-20 08:38] VITALS: BP 134/69
--- NOTE | 2018-08-20 09:45 | NUR ---
PT ORIENTED TO SELF ONLY. BREATH SOUNDS CLEAR BILAT. NO IV ACCESS AT THIS TIME. FAMILY AT BEDSIDE. PT REPORTING NO PAIN AT THIS TIME. FAMILY REQUESTING TO TAKE PT OUTSIDE FOR FRESH AIR. BED LOW, CALL LIGHT IN REACH. NO OTHER NEEDS AT THIS TIME.
[2018-08-20 13:00] VITALS: BP 152/71
[2018-08-20] MEDS ORDERED: CYMBALTA20 MG PO (15:50)
[2018-08-20] MEDS ORDERED: CALMOSEPTINE OI71 GM TOPICAL (15:51)
--- NOTE | 2018-08-20 16:14 | MORECARE ---
CASE MANAGEMENT DISCHARGE SUMMARY PATIENT: DERIC BEARDEN UNIT: [id number] ADM DATE: 08/13/18 AGE: 82 : 36 SEX: F ROOM/BED: D.2203 AUTHOR: NITA,DOC PHYSICIAN: REFERRING PHYSICIAN: JANE GUSTAFSON DO DATE OF SERVICE: 08/20/18 Discharge Plan Patient Name: DERIC BEARDEN [facility] [facility] 1935 Planned Disposition: Inpatient Rehab Anticipated Discharge Date: 08/20/18 Discharge Date: Expected LOS: 7 Initial Reviewer: [email or web address] Initial Review Date: 08/16/2018 Generated: 08/20/18 5:14 pm DCP- Discharge Planning Updated by [id number]: Gordon Nunes on 08/19/18 12:[address] Patient Name: DERIC BEARDEN Encounter No: [id number] : 1935 Primary Insurance: MEDICARE A & B Anticipated DC Date: Planned Disposition: Inpatient Rehab External Planned Provider: [facility] DCP follow-up note: CM RECEIVED REQUEST TO MEET WITH PT AND DAUGHTER IN ROOM. CM MET WITH PT AND DAUGHTER IN ROOM. PT'S DAUGHTER WANTED TO MAKE SURE THAT [facility] WAS STILL CONSIDERING PT FOR REHAB AND ASKED IF SHE NEEDED TO DO ANYTHING FURTHER. CM REVIEWED CHART, [facility] NOT INDICATES THEY ARE STILL FOLLOWING. CM NOTIFIED DAUGHTER OF THIS AND INFORMED HER THAT NO DETERMINATION HAS YET BEEN REACHED AND THEY ARE WAITING ON MEDICAL STABILITY AND WILL CONTINUE TO MONITOR PT'S PROGRESS WITH THERAPY TO ENSURE THAT CAN TOLERATE THE THERAPY AND FULLY PARTICIPATE IF ACCEPTED. DAUGHTER THANKED CM. IMPORTANT MESSAGE FROM MEDICARE PROVIDED AND EXPLAINED. CM WAITING ON MEDICAL STABILITY AND ADMISSION DETERMINATION FROM [facility]. SUKH Roche DCP- Discharge Planning Updated by [id number]: Malaika Dunham on 08/16/18 11:[address] Patient Name: DERIC BEARDEN Admission Status: ER Accout number: [id number] Admission Date: 08-13-2018 : 1935 Admission Diagnosis: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 DAUGHTER STATES SHE HAS WALKER AT HOME AND WAS USING [facility]. PATIENT AND FAMILY WOULD LIKE INPATIENT REHAB. CM TO FOLLOW AND ASSIST. Gift Wrapper: Malaika Dunham DCPIA - Discharge Planning Initial Assessment Updated by [id number]: Malaika Dunham on 08/16/18 12:56 pm * Is the patient Alert and Oriented? Yes * PCP LASHA * Pharmacy [facility] * Preadmission Environment Home Alone * ADLs Independent * Equipment Walker * List name and contact numbers for known caregivers / representatives who currently or will assist patient after discharge: MALAIKA, DAUGHTER, * Community resources currently utilized Home Health * Additional services required to return to the preadmission environment? No * Can the patient safely return to the preadmission environment? Yes * Has this patient been hospitalized within the prior 30 days at any hospital? No Coverage Notice Reviewer: [id number] Vinayak Nunes Notice Issued Date-Time: 08/19/2018 10:30 Notice Type: IM Discharge Notice Notice Delivered To: Family Member Relationship to Patient: Daughter Auto Body Painter Name: MALAIKA LUJAN Delivery Method: HAND - Hand Delivered Nirmala Days: Prior Verbal Notification: Recipient Understood Notice: Yes Recipient Signature: Yes Med Rec Note Co-signed by Attending: Coverage Notice Comment: Last DP export: 08/19/18 12:25 pm Patient Name: DERIC BEARDEN Page 33894 at 1614 All edits/amendments must be made on the electronic document DICTATION DATE: 08/20/18 1614 MANAGER ANALYSIS: PADMAJA 08/20/18 1614 RPT#: [id number] DC DATE: STATUS: ADM IN [facility] [address] [place] [address] END OF REPORT
--- NOTE | 2018-08-20 16:21 | MORECARE ---
CASE MANAGEMENT DISCHARGE SUMMARY PATIENT: DERIC BEARDEN UNIT: [id number] ADM DATE: 08/13/18 AGE: 82 : 36 SEX: F ROOM/BED: D.2203 AUTHOR: NITA,DOC PHYSICIAN: REFERRING PHYSICIAN: JANE GUSTAFSON DO DATE OF SERVICE: 08/20/18 Discharge Plan Patient Name: DERIC BEARDEN [facility] [facility] 1935 Planned Disposition: Inpatient Rehab Anticipated Discharge Date: 08/20/18 Discharge Date: Expected LOS: 7 Initial Reviewer: [id number] Initial Review Date: 08/16/2018 Generated: 08/20/18 5:21 pm DCP- Discharge Planning Updated by [email or web address]: Gordon Nunes on 08/19/18 12:[address] Patient Name: DERIC BEARDEN Encounter No: [id number] : 1935 Primary Insurance: MEDICARE A & B Anticipated DC Date: Planned Disposition: Inpatient Rehab External Planned Provider: [facility] DCP follow-up note: CM RECEIVED REQUEST TO MEET WITH PT AND DAUGHTER IN ROOM. CM MET WITH PT AND DAUGHTER IN ROOM. PT'S DAUGHTER WANTED TO MAKE SURE THAT [facility] WAS STILL CONSIDERING PT FOR REHAB AND ASKED IF SHE NEEDED TO DO ANYTHING FURTHER. CM REVIEWED CHART, [facility] NOT INDICATES THEY ARE STILL FOLLOWING. CM NOTIFIED DAUGHTER OF THIS AND INFORMED HER THAT NO DETERMINATION HAS YET BEEN REACHED AND THEY ARE WAITING ON MEDICAL STABILITY AND WILL CONTINUE TO MONITOR PT'S PROGRESS WITH THERAPY TO ENSURE THAT CAN TOLERATE THE THERAPY AND FULLY PARTICIPATE IF ACCEPTED. DAUGHTER THANKED CM. IMPORTANT MESSAGE FROM MEDICARE PROVIDED AND EXPLAINED. CM WAITING ON MEDICAL STABILITY AND ADMISSION DETERMINATION FROM [facility]. SUKH Roche DCP- Discharge Planning Updated by [id number]: Malaika Dunham on 08/16/18 11:[address] Patient Name: DERIC BEARDEN Admission Status: ER Accout number: [id number] Admission Date: 08-13-2018 : 1935 Admission Diagnosis: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 DAUGHTER STATES SHE HAS WALKER AT HOME AND WAS USING [facility]. PATIENT AND FAMILY WOULD LIKE INPATIENT REHAB. CM TO FOLLOW AND ASSIST. Meat Washer: Malaika Dunham DCPIA - Discharge Planning Initial Assessment Updated by [email or web address]: Malaika Dunham on 08/16/18 12:56 pm * Is the patient Alert and Oriented? Yes * PCP LASHA * Pharmacy [facility] * Preadmission Environment Home Alone * ADLs Independent * Equipment Walker * List name and contact numbers for known caregivers / representatives who currently or will assist patient after discharge: MALAIKA, DAUGHTER, * Community resources currently utilized Home Health * Additional services required to return to the preadmission environment? No * Can the patient safely return to the preadmission environment? Yes * Has this patient been hospitalized within the prior 30 days at any hospital? No Coverage Notice Reviewer: [email or web address] Vinayak Nunes Notice Issued Date-Time: 08/19/2018 10:30 Notice Type: IM Discharge Notice Notice Delivered To: Family Member Relationship to Patient: Daughter Computer Forensic Specialist Name: MALAIKA LUJAN Delivery Method: HAND - Hand Delivered Nirmala Days: Prior Verbal Notification: Recipient Understood Notice: Yes Recipient Signature: Yes Med Rec Note Co-signed by Attending: Coverage Notice Comment: Last DP export: 08/19/18 12:25 pm Patient Name: DERIC BEARDEN Page 28092 at 1621 All edits/amendments must be made on the electronic document DICTATION DATE: 08/20/18 1621 HOST/HOSTESS: PADMAJA 08/20/18 1621 RPT#: [id number] DC DATE: STATUS: ADM IN [facility] [address] [place] [address] END OF REPORT
--- NOTE | 2018-08-20 16:29 | MORECARE ---
CASE MANAGEMENT DISCHARGE SUMMARY PATIENT: DERIC BEARDEN UNIT: [id number] ADM DATE: 08/13/18 AGE: 82 : 36 SEX: F ROOM/BED: D.2203 AUTHOR: NITA,DOC PHYSICIAN: REFERRING PHYSICIAN: JANE GUSTAFSON DO DATE OF SERVICE: 08/20/18 Discharge Plan Patient Name: DERIC BEARDEN [facility] [facility] 1935 Planned Disposition: Inpatient Rehab Anticipated Discharge Date: 08/20/18 Discharge Date: Expected LOS: 7 Initial Reviewer: [email or web address] Initial Review Date: 08/16/2018 Generated: 08/20/18 5:29 pm Comments DCP- Discharge Planning Updated by [email or web address]: Radha Echols on 08/20/18 3:[address] LATE ENTRY 1100 CM SPOKE WITH CAMPUS SECURITY OFFICER TO CONFIRM CONSULT REQUEST AND FACE SHEET HAD BEEN FAXED TO ALF FOR DR HAMILTON. SHE CONFIRMS CONSULT REQUEST HAD BEEN SENT. SHE ALSO SPOKE WITH [facility]ET TO ADVISE OF CONSULT. DR HAMILTON VISITED THIS AM AT 1130. PATIENT HAS BEEN ASSISGNED TO ROOM 1109. PLAN FOR DISCHARGE TO [facility] TODAY. DCP- Discharge Planning Updated by [id number]: Gordon Nunes on 08/19/18 12:[address] Patient Name: DERIC BEARDEN Encounter No: [id number] : 1935 Primary Insurance: MEDICARE A & B Anticipated DC Date: Planned Disposition: Inpatient Rehab External Planned Provider: [facility] DCP follow-up note: CM RECEIVED REQUEST TO MEET WITH PT AND DAUGHTER IN ROOM. CM MET WITH PT AND DAUGHTER IN ROOM. PT'S DAUGHTER WANTED TO MAKE SURE THAT [facility] WAS STILL CONSIDERING PT FOR REHAB AND ASKED IF SHE NEEDED TO DO ANYTHING FURTHER. CM REVIEWED CHART, [facility] NOT INDICATES THEY ARE STILL FOLLOWING. CM NOTIFIED DAUGHTER OF THIS AND INFORMED HER THAT NO DETERMINATION HAS YET BEEN REACHED AND THEY ARE WAITING ON MEDICAL STABILITY AND WILL CONTINUE TO MONITOR PT'S PROGRESS WITH THERAPY TO ENSURE THAT CAN TOLERATE THE THERAPY AND FULLY PARTICIPATE IF ACCEPTED. DAUGHTER THANKED CM. IMPORTANT MESSAGE FROM MEDICARE PROVIDED AND EXPLAINED. CM WAITING ON MEDICAL STABILITY AND ADMISSION DETERMINATION FROM [facility]. Gordon Nunes, CASE MANAGEMENT DCP- Discharge Planning Updated by [id number]: Malaika Dunham on 08/16/18 11:[address] Patient Name: DERIC BEARDEN Admission Status: ER Accout number: [id number] Admission Date: 08-13-2018 : 1935 Admission Diagnosis: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 DAUGHTER STATES SHE HAS WALKER AT HOME AND WAS USING [facility]. PATIENT AND FAMILY WOULD LIKE INPATIENT REHAB. CM TO FOLLOW AND ASSIST. Health Insurance Agent: Malaika Dunham DCPIA - Discharge Planning Initial Assessment Updated by [email or web address]: Malaika Dunham on 08/16/18 12:56 pm * Is the patient Alert and Oriented? Yes * PCP LASHA * Pharmacy [facility] * Preadmission Environment Home Alone * ADLs Independent * Equipment Walker * List name and contact numbers for known caregivers / representatives who currently or will assist patient after discharge: MALAIKA, DAUGHTER, * Community resources currently utilized Home Health * Additional services required to return to the preadmission environment? No * Can the patient safely return to the preadmission environment? Yes * Has this patient been hospitalized within the prior 30 days at any hospital? No Coverage Notice Reviewer: [id number] - Gordon Nunes Notice Issued Date-Time: 08/19/2018 10:30 Notice Type: IM Discharge Notice Notice Delivered To: Family Member Relationship to Patient: Daughter Ammunition Officer Name: MALAIKA LUJAN Delivery Method: HAND - Hand Delivered Nirmala Days: Prior Verbal Notification: Recipient Understood Notice: Yes Recipient Signature: Yes Med Rec Note Co-signed by Attending: Coverage Notice Comment: Last DP export: 08/20/18 3:21 pm Patient Name: DERIC BEARDEN Page 30630 at 6759 All edits/amendments must be made on the electronic document DICTATION DATE: 08/20/181627 CURRICULUM ASSISTANT PRINCIPAL: PADMAJA 08/20/181627 RPT#: [id number] DC DATE: STATUS: ADM IN [facility] [address] [place] [address] END OF REPORT
[2018-08-20 16:49] VITALS: BP 143/64
--- NOTE | 2018-08-20 17:34 | NUR ---
DISCHARGE PAPERWORK SIGNED, ALL QUESTIONS ANSWERED. TAKEN TO REHAB BY WHEELCHAIR.
--- NOTE | 2018-08-20 18:41 | MORECARE ---
CASE MANAGEMENT DISCHARGE SUMMARY PATIENT: DERIC BEARDEN UNIT: [id number] ADM DATE: 08/13/18 AGE: 82 : 36 SEX: F ROOM/BED: D.2203 AUTHOR: NITA,DOC PHYSICIAN: REFERRING PHYSICIAN: JANE GUSTAFSON DO DATE OF SERVICE: 08/20/18 Discharge Plan Patient Name: DERIC BEARDEN [facility] [facility] 1935 Planned Disposition: Inpatient Rehab Anticipated Discharge Date: 08/20/18 Discharge Date: 08/20/2018 Expected LOS: 7 Initial Reviewer: [email or web address] Initial Review Date: 08/16/2018 Generated: 08/20/18 7:41 pm Comments DCP- Discharge Planning Updated by [id number]: Radha Echols on 08/20/18 3:[address] LATE ENTRY 1100 CM SPOKE WITH SUPERINTENDENT SERVICE TO CONFIRM CONSULT REQUEST AND FACE SHEET HAD BEEN FAXED TO [facility] FOR DR HAMILTON. SHE CONFIRMS CONSULT REQUEST HAD BEEN SENT. SHE ALSO SPOKE WITH VET TO ADVISE OF CONSULT. DR HAMILTON VISITED THIS AM AT 1130. PATIENT HAS BEEN ASSISGNED TO ROOM 1109. PLAN FOR DISCHARGE TO [facility] TODAY. DCP- Discharge Planning Updated by [email or web address]: Gordon Nunes on 08/19/18 12:[address] Patient Name: DERIC BEARDEN Encounter No: [id number] : 1935 Primary Insurance: MEDICARE A & B Anticipated DC Date: Planned Disposition: Inpatient Rehab External Planned Provider: [facility] DCP follow-up note: CM RECEIVED REQUEST TO MEET WITH PT AND DAUGHTER IN ROOM. CM MET WITH PT AND DAUGHTER IN ROOM. PT'S DAUGHTER WANTED TO MAKE SURE THAT [facility] WAS STILL CONSIDERING PT FOR REHAB AND ASKED IF SHE NEEDED TO DO ANYTHING FURTHER. CM REVIEWED CHART, LAST REHAB NOT INDICATES THEY ARE STILL FOLLOWING. CM NOTIFIED DAUGHTER OF THIS AND INFORMED HER THAT NO DETERMINATION HAS YET BEEN REACHED AND THEY ARE WAITING ON MEDICAL STABILITY AND WILL CONTINUE TO MONITOR PT'S PROGRESS WITH THERAPY TO ENSURE THAT CAN TOLERATE THE THERAPY AND FULLY PARTICIPATE IF ACCEPTED. DAUGHTER THANKED CM. IMPORTANT MESSAGE FROM MEDICARE PROVIDED AND EXPLAINED. CM WAITING ON MEDICAL STABILITY AND ADMISSION DETERMINATION FROM [facility]. Gordon Nunes, CASE MANAGEMENT DCP- Discharge Planning Updated by [id number]: Malaika Dunham on 08/16/18 11:[address] Patient Name: DERIC BEARDEN Admission Status: ER Accout number: [id number] Admission Date: 08-13-2018 : 1935 Admission Diagnosis: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 DAUGHTER STATES SHE HAS WALKER AT HOME AND WAS USING [facility]. PATIENT AND FAMILY WOULD LIKE INPATIENT REHAB. CM TO FOLLOW AND ASSIST. Loan Processing Supervisor: Malaika Dunham DCPIA - Discharge Planning Initial Assessment Updated by [id number]: Malaika Dunham on 08/16/18 12:56 pm * Is the patient Alert and Oriented? Yes * PCP LASHA * Pharmacy [facility] * Preadmission Environment Home Alone * ADLs Independent * Equipment Walker * List name and contact numbers for known caregivers / representatives who currently or will assist patient after discharge: MALAIKA, DAUGHTER, * Community resources currently utilized Home Health * Additional services required to return to the preadmission environment? No * Can the patient safely return to the preadmission environment? Yes * Has this patient been hospitalized within the prior 30 days at any hospital? No Coverage Notice Reviewer: [id number] - Gordon Nunes Notice Issued Date-Time: 08/19/2018 10:30 Notice Type: IM Discharge Notice Notice Delivered To: Family Member Relationship to Patient: Daughter Helicopter Engineer Name: MALAIKA LUJAN Delivery Method: HAND - Hand Delivered Nirmala Days: Prior Verbal Notification: Recipient Understood Notice: Yes Recipient Signature: Yes Med Rec Note Co-signed by Attending: Coverage Notice Comment: Last DP export: 08/20/18 3:29 pm Patient Name: DERIC BEARDEN Page [id number] at 1841 All edits/amendments must be made on the electronic document DICTATION DATE: 08/20/18 1840 PAIL BAILER: PADMAJA 08/20/18 1840 RPT#: [id number] DC DATE:08/20/18 STATUS: DIS IN [facility] [address] [place] [address] END OF REPORT
--- NOTE | 2018-08-21 11:33 | CN ---
PATIENT NAME:DERIC BEARDEN MEDICAL RECORD: [id number] : 37 LOCATION:D.MS Ashraf2203 ADMIT DATE: 08/13/18 ACCOUNT: [id number] CONSULTING PHYSICIAN: STARR HAMILTON MD REFERRING PHYSICIAN: JANE GUSTAFSON DO DATE OF CONSULTATION: 08/20/2018 IDENTIFYING DATA: The patient is 82 years old and she was admitted to the hospital on a voluntary basis. CHIEF COMPLAINT: None. HISTORY OF PRESENT ILLNESS: The patient was admitted to the hospital secondary to a compression fracture of L3. She has had some significant confusion in the hospital. She is not aware of this. The daughter says that this has occurred in the past when she has an infection, but otherwise she does fine. I have been asked to evaluate the patient for dementia. The patient is polite on interview interacts and is cooperative. The daughter is not there. The patient clearly has evidence of confusion consistent with a dementing illness and I will detail that below in the mental status examination. She has no other evidence of behavior problems, mood disorder, or psychotic symptoms. MENTAL STATUS EXAMINATION: The patient is awake, alert, and oriented to person only. She knows she is in [place], but does not recognize that she is in the hospital. She says she is 31 or 41 years old and that the year is 1947. Her mood is euthymic. Her affect is appropriate. Thought processes are poorly organized. Her memory, concentration, and abstraction abilities are impaired. She denies intent to harm herself or others and denies psychotic symptoms. ASSESSMENT: Major neurocognitive disorder of the Alzheimer's type. PLAN: At this time, the patient has no evidence of a delirium. She does not have a waxing and waning of her cognition. I have no doubt that the daughter's history that she gets worse when she comes into the hospital is correct, since the patient is being taken from a familiar environment. I seriously doubt that she has no evidence of impairment at home and think that is probably denial associated with her close relationship to her mother and that is what the daughter is experiencing. This patient is not a substance abuser. She has no evidence of a mood or thinking disorder. No long-term psychiatric history and no evidence of a delirium. She is not taking any medications that should significantly impair her cognition. She has all the signs, symptoms, and characteristics of a dementing illness and it most likely is Alzheimer's in nature. I agree with the use of Aricept. I agree with the use of the Cymbalta. This patient is in need of 27-cdzb-t-day supervision. I have not been able to assess her psychosocial situation and would only recommend discharging her to a setting where she does have close supervision. There is no evidence of acute or direct dangerousness other than the fact that the patient needs assistance and supervision, which is a different characteristics than someone who is actively dangerous in some way. TRANSINT:[id number] Voice Confirmation ID: [id number] DOCUMENT ID: [id number] CONSULT REPORT [id number] DERIC BEARDEN, STARR PALENCIA at 1133 CC: [id number] DICTATION DATE: 08/20/18 1504 MANAGER STUDIO: 08/20/18 1741 DIS IN 08/20/18 [facility] [address] [place] [address]
== END 2018-08-20 17:35 | DRG 552 ==
LOC: D.ER 15:51 → D.MS 19:47
PROVIDERS: Family Medicine; Internal Medicine Nephrology; ADMIT Family Medicine; ATTEND Family Medicine
DX: S32.031A Stable burst fracture of third lumbar vertebra, initial encounter for closed fracture (principal); N39.0 Urinary tract infection, site not specified; D64.9 Anemia, unspecified; E11.9 Type 2 diabetes mellitus without complications; I25.10 Atherosclerotic heart disease of native coronary artery without angina pectoris; K21.9 Gastro-esophageal reflux disease without esophagitis; Z74.09 Other reduced mobility; G30.1 Alzheimer's disease with late onset; F02.80 Dementia in other diseases classified elsewhere, unspecified severity, without behavioral disturbance, psychotic disturbance, mood disturbance, and anxiety

== ENCOUNTER 2018-08-20 15:41 | Inpatient (IN) | payer MEDICARE, OTHER ==
[~2018-08-20] VITALS: Ht 157.5 cm; Wt 56.7 kg
[~2018-08-20 15:41] MED LIST changes: +ACETAMINOPHEN500 M1 PO; +CYMBALTA20 MG PO; +ESTRACE 0.0142.5 GM VG; +FLAGYL250 MG; +FLORASTOR250 MG PO; +HYDROCODON-ACE1 EA10 PO; +NORVASC5 MG PO; +OMNICEF125 MG/5 M; +OMNICEF300 MG PO; +ULTRAM50 MG PO; +VITAMIN B-12500 MC1 PO
[2018-08-20] MEDS ORDERED: CYMBALTA20 MG PO (15:50)
[2018-08-20] MEDS ORDERED: CALMOSEPTINE OI71 GM TOPICAL (15:51)
[2018-08-20 17:54] VITALS: BP 152/65; BMI 22.9
[2018-08-20 18:02] VITALS: BP 152/65
--- NOTE | 2018-08-20 19:33 | NUR ---
AWAKE AND ORIENTED TO PERSON ONLY. RESPIRATIONS UNLABORED. HISTORY OF ALZHIEMERS. RESTING IN BED WITH NO DISTRESS NOTED. CALL LIGHT IN REACH.
[2018-08-20 19:35] VITALS: BP 152/74
--- NOTE | 2018-08-21 02:31 | NUR ---
RESTING IN BED. RESPIRATIONS UNLABORED. SOMEWHAT RESTLESS. TOSSES AND TURNS A LOT. SAFETY MEASURES IN PLACE.
--- NOTE | 2018-08-21 05:37 | NUR ---
RESTLESS HOURS. RESPIRATIONS UNLABORED. REMAINS CONFUSED. HASNT SLEPT MUCH TONIGHT. CURRENTLY AWAKE AND RESTING IN BED. BED ALARM ON AND CALL LIGHT IN REACH.
[2018-08-21 06:42] LABS: BASOPHILS 0.6 % (0-2); EOSINOPHILS 2.1 % (0-7); HEMATOCRIT 34.5 % (36.0-48.0); HEMOGLOBIN 11.4 g/dL (12-16); IMMATURE GRANULOCYTES 0.3 % (0-5); LYMPHOCYTES 29.9 % (15-50); MCH 30.1 pg (26.0-34.0); MEAN PLATELET VOLUME 9.2 fL (7.4-10.4); MONOCYTES 12.4 % (2-11); NEUTROPHILS 54.7 % (40-80); PLATELET COUNT 388 10x3/uL (130-400); RBC 3.79 10x6/uL (4.00-5.40); RDW 16.2 % (11.5-14.5); WBC 7.1 10x3/uL (4.8-10.8)
[2018-08-21 06:53] LABS: CALCIUM 9.5 mg/dL (8.5-10.1); CARBON DIOXIDE 29.6 mmol/L (21.0-32.0); POTASSIUM - SERUM 4.6 mmol/L (3.5-5.1)
--- NOTE | 2018-08-21 07:23 | NUR ---
ALERT WITH CONFUSION. RESP EVEN AND UNLABORED. CL IN REACH. ALARM ON.
[2018-08-21 07:55] VITALS: BP 171/83
[2018-08-21 11:25] VITALS: Ht 157.5 cm; Wt 56.7 kg
--- NOTE | 2018-08-21 13:14 | NUR ---
DAUGHTER AT BS. PATIENT DOES NOT FOLLOW DIRECTIONS. COGNITIVELY IMPAIRED AT THIS TIME. WAS TRYING TO CHEW ON TELEPHONE CORD THSI AM.
--- NOTE | 2018-08-21 14:48 | NUR ---
CONFUSES. NEEDS FED PER STAFF. ACCIDENTS BM/URINE ON FLOOR X2. STAFF CLEANED UP.
--- NOTE | 2018-08-21 16:33 | NUR ---
NO CHANGE IN ASSESSMENT. RESTING AT THIS TIME. BED ALARM ON. HAS ATTEMPTED TO GET OOB SEVERAL TIMES TODAY.
--- NOTE | 2018-08-21 19:36 | NUR ---
AWAKE AND RESTING IN BED WITH RESPIRAITONS UNLABORED. NOTED CONFUSED. ORIENTED TO PERSON ONLY. NO ACUTE DISTRESS NOTED. CALL LIGHT IN REACH. BED ALARM ON.
[2018-08-21 19:40] VITALS: BP 129/67
--- NOTE | 2018-08-22 01:22 | NUR ---
RESTING IN BED WITH EYES CLOSED AND RESPIRAITONS UNLABORED. NO DISTRESS NOTED. CALL LIGHT IN REACH.
--- NOTE | 2018-08-22 05:38 | NUR ---
QUIET HOURS. RESTING IN BED WITH RESPIRATIONS UNLABORED. SLEPT WELL TONIGHT. NO ACUTE CHANGES IN CONDITION THIS SHIFT. NO DISTRESS NOTED. CALL LIGHT IN REACH.
[2018-08-22 07:58] VITALS: BP 143/54
--- NOTE | 2018-08-22 08:34 | NUR ---
ALERT. CONFUSED. FED BREAKFAST. NO DISTRESS NOTED. CL IN REACH. BED ALARM ON.
--- NOTE | 2018-08-22 09:27 | NUR ---
CALLED PHARMACY TO BRING CALMOSEPTINE AND LACTINEX.
--- NOTE | 2018-08-22 12:54 | NUR ---
REPOSITIONED UP IN BED. CHANGED PULL UP X2. CALMOSEPTINE/ALOE APPLIED TO BUTTOCKS. NO CHANGE IN ASSESSMENT.
--- NOTE | 2018-08-22 15:53 | NUR ---
INCONT B/B ON LINENS X3. SHOWER GIVEN ON 08/21/18. ( NEEDED CLEANED UP YESTERDAY). HAS BEEN BATHED TODAY MULT. TIMES. HAS FOLLOWED INSTRUCIONS SLIGHTLY BETTER TODAY. NO CHANGE IN ASSESSMENT.
--- NOTE | 2018-08-22 18:05 | NUR ---
CHANGED LINENS X3 TODAY.
--- NOTE | 2018-08-22 19:24 | NUR ---
PT RESTING QUIETLY. EYES CLOSED LAYING ON LEFT SIDE. BED IN LOW SIDE RAILS X2. BED ALARM ON. NO DISTRESS NOTED. RESP EVEN AND UNLABORED. WCTM
[2018-08-22 20:53] VITALS: BP 119/63
--- NOTE | 2018-08-22 21:21 | NUR ---
WENT INTO PT ROOM TO GIVE MEDS. CHANGED ENTIRE LINENS DUE TO INCONT OF BOWEL AND BLADDER. MEDS GIVEN CRUSHED IN PUDDING. FSBS 162 WAS 170 EARLIER TODAY AND INSULIN WAS HELD NOT GIVING NIGHT DOSE DUE TO NOT EATING MUCH DURING THE DAY. WCTM PT LYING IN BED. CL IN REACH. BED ALARM ON
--- NOTE | 2018-08-23 01:17 | NUR ---
I have reviewed this patient and I concur with the Shift Assessment completed by the Licensed Practical Nurse today this shift.
--- NOTE | 2018-08-23 01:52 | NUR ---
PT RESTING QUIETLY. CL IN REACH. NO DISTRESS NOTED. WCTM
--- NOTE | 2018-08-23 05:45 | NUR ---
CHANGED PT BRIEF AND PREFORMED MADELYN CARE. APPLIED WAYNE TO BUTTOCKS. CL IN REACH. WCTM
[2018-08-23 06:28] LABS: BASOPHILS 0.3 % (0-2); EOSINOPHILS 1.5 % (0-7); HEMATOCRIT 33.2 % (36.0-48.0); HEMOGLOBIN 10.9 g/dL (12-16); IMMATURE GRANULOCYTES 0.1 % (0-5); LYMPHOCYTES 33.8 % (15-50); MCH 29.6 pg (26.0-34.0); MCHC 32.8 g/dL (31.0-37.0); MCV 90.2 fL (80.0-100.0); MEAN PLATELET VOLUME 9.4 fL (7.4-10.4); MONOCYTES 17.2 % (2-11); NEUTROPHILS 47.1 % (40-80); PLATELET COUNT 383 10x3/uL (130-400); RBC 3.68 10x6/uL (4.00-5.40); RDW 15.8 % (11.5-14.5); WBC 7.8 10x3/uL (4.8-10.8)
--- NOTE | 2018-08-23 06:39 | NUR ---
FSBS 143
[2018-08-23 07:16] LABS: ANION GAP 13.9 mmol/L (8-16); CALCIUM 9.5 mg/dL (8.5-10.1); CARBON DIOXIDE 27.1 mmol/L (21.0-32.0)
[2018-08-23 08:00] VITALS: BP 138/63
--- NOTE | 2018-08-23 08:00 | NUR ---
PATIENT IS CONFUSED. BED/CHAIR ALARM ON. CALL LIGHT WITHIN REACH. THIS NURSE HELPED PATIENT WITH BREAKFAST. WILL CONTINUE WITH PLAN OF CARE
--- NOTE | 2018-08-23 10:05 | NUR ---
PATIENT IN REHAB ROOM. WORKING WITH PHYSICAL THERAPIST.
--- NOTE | 2018-08-23 10:53 | NUR ---
NUTRITION F/U PT TOLERATING DIABETIC DIET, ~75% INTAKE RECENT MEALS. GLUCERNA SHAKE ADDED TO BREAKFAST AND DINNER MEALS. WILL CONTINUE TO PROVIDE DIET, MONITOR PT PROGRESS. RD FOLLOWING
--- NOTE | 2018-08-23 14:23 | NUR ---
PATIENT BACK IN BED AFTER THERAPY AND LUNCH. HAD INCONT EPISODE OF B/B. CHANGED BY THIS NURSE AND MADELYN CARE GIVEN. BED ALARM ON
--- NOTE | 2018-08-23 17:00 | NUR ---
PATIENT SITTING UP IN WHEELCHAIR AT BEDSIDE TO EAT SUPPER. CHAIR ALARM ON. CALL LIGHT WITHIN REACH
--- NOTE | 2018-08-23 19:11 | NUR ---
RESTING IN BED WITH EYES CLOSED AND RESPIRATINS UNLABORED. NO ACUTE DISTRESS NOTED. CALL LIGHT IN REACH.
[2018-08-23 20:22] VITALS: BP 126/60
--- NOTE | 2018-08-24 02:21 | NUR ---
RESTING IN BED WITH RESPRIAITONS UNLABORED. NO DISTRESS NOTED. CALL MANOHAR VALLECILLO.
--- NOTE | 2018-08-24 05:01 | NUR ---
RESTING IN BED. SLEPT IN INTERVALS. RESPIRAITONS UNLABORED. NO DISTRESS NOTED. CALL LIGHT IN REACH.
--- NOTE | 2018-08-24 07:52 | NUR ---
RESTING WITH EYES CLOSED. NO DISTRESS NOTED. CL IN REACH. RESP EVEN AND UNLABORED.
[2018-08-24 08:00] VITALS: BP 119/74
--- NOTE | 2018-08-24 13:09 | NUR ---
SHOWER THIS AM PER NURSING. SAT IN CHAIR FOR A WHILE. BACK IN BED RESTING AT THIS TIME. BED ALARM ON.
--- NOTE | 2018-08-24 16:38 | NUR ---
RESTING IN BED. BED ALARM IS ON. NO DISTRESS NOTED. DAUGHTER WAS HERE EARILER. CL IN REACH. NO CHANGE IN ASSESSMENT.
--- NOTE | 2018-08-24 19:32 | NUR ---
RESTING IN BED WIHT EYES CLOSED AND RESPIRAITONS UNLABORED. NO ACUTE DISTRESS NOTED. SAFETY MEASURES IN PLACE.
[2018-08-24 20:02] VITALS: BP 134/73
--- NOTE | 2018-08-25 03:41 | NUR ---
RESTING IN BED WITH RESPIRATIONS UNLABORED. NO ACUTE DISTRESS NOTED. CALL LIGHTIN RUTH ANN.
--- NOTE | 2018-08-25 04:54 | NUR ---
INCONTINENCE CARE GIVEN AND RESPOSITIONED, RESPIRATIONS UNLABORED. CALL LIGHTIN REACH.
[2018-08-25 08:02] VITALS: BP 147/75
--- NOTE | 2018-08-25 08:03 | NUR ---
ALERT WITH CONFUSION NOTED. NO C/O PAIN. CL IN REACH. RESP EVEN AND UNLABORED.
[2018-08-25 08:21] LABS: BASOPHILS 0.4 % (0-2); EOSINOPHILS 2.4 % (0-7); HEMATOCRIT 34.9 % (36.0-48.0); HEMOGLOBIN 11.1 g/dL (12-16); IMMATURE GRANULOCYTES 0.4 % (0-5); LYMPHOCYTES 31.4 % (15-50); MCH 29.3 pg (26.0-34.0); MCHC 31.8 g/dL (31.0-37.0); MCV 92.1 fL (80.0-100.0); MEAN PLATELET VOLUME 9.5 fL (7.4-10.4); MONOCYTES 13.8 % (2-11); NEUTROPHILS 51.6 % (40-80); PLATELET COUNT 370 10x3/uL (130-400); RBC 3.79 10x6/uL (4.00-5.40); RDW 15.9 % (11.5-14.5)
[2018-08-25 08:25] LABS: CALCIUM 9.5 mg/dL (8.5-10.1); CARBON DIOXIDE 30.3 mmol/L (21.0-32.0); POTASSIUM - SERUM 4.3 mmol/L (3.5-5.1)
--- NOTE | 2018-08-25 12:09 | RHP ---
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 The patient has a history of dementia, neuropathy, lumbar fracture, coronary artery disease, coronary artery bypass grafting and hypertension, presented to ED after sustaining a fall with back pain and generalized weakness. The patient also recently had a UTI, treated with antibiotics that developed into septicemia requiring hospitalization. She did develop CDT, but it tested negative prior to discharge at [facility]. Prior to these events, she was scheduled to see neurosurgery for her lumbar fracture. The patient has been weeks since her discharge from [facility]. Her gait has been less steady and unbalanced at time. Imaging in the ED revealed an L3 fracture. She was admitted to the medical floor for further evaluation. The patient has impaired functional mobility, balance, gait and endurance, self-care deficits, normocytic anemia, electrolyte abnormalities, in addition to the comorbid conditions listed above. All these are barriers to her discharge home and that will require continued management of a physician during her acute stay. She was previously completely independent with ADLs and moderately independent with ambulation using a rolling walker in May. She has continued to decline functionally over the past couple of months. She is min-to-mod assist with ADLs and continues to have balance issues, requiring a gait belt ambulation using a rolling walker. She has required intensive rehab therapies to include PT, OT and speech therapy in order to regain her strength and endurance prior to her going home. Dr. Shepard has planned on doing a kyphoplasty on an outpatient basis. COMORBIDITIES: In this patient include uygrnwqj-dk-xzvpei canal stenosis, severe facet joint hypertrophy, fracture of L3, neuropathy, UTI, septicemia, diabetes, coronary artery disease, normocytic anemia, impaired functional mobility, balance, gait, endurance and coronary bypass grafting. PAST MEDICAL HISTORY: Significant for cataracts, diabetes, coronary artery disease and hypertension. PAST SURGICAL HISTORY: Includes hysterectomy. She has had cataract surgery, rotator cuff, coronary artery bypass grafting. ALLERGIES: PENICILLIN, SULFA, LATEX, DIPRIVAN, AND LEVAQUIN. CURRENT MEDICATIONS: Include Protonix 40 mg daily, B12 500 mcg daily, vitamin D 1000 units daily. She is on lactobacillus 1 tab t.i.d. with meals, Questran 1 packet b.i.d. Humalog, she is on a low-resistant sliding scale. She is on potassium 20 mEq b.i.d., Calmoseptine p.r.n., duloxetine 40 mg at bedtime. She is on Aricept 5 mg at bedtime, acetaminophen 500 mg at bedtime, tramadol 50 mg every 6 hours p.r.n., MiraLax 17 grams in 8 ounces of water daily and [place] HISTORY AND PHYSICAL [id number] DERIC BEARDEN 10/325 one tab every 6 hours p.r.n. HABITS: No current alcohol or tobacco use. FAMILY HISTORY: Noncontributory. SOCIAL HISTORY: The patient hopes to return back home. She lost her not too long ago and her family has good support. REVIEW OF SYSTEMS: GENERAL: Does complain of weakness and fatigue. HEENT: Denies cold, cough, or congestion. CARDIOVASCULAR: Denies any chest pain at this time. PHYSICAL EXAMINATION: VITAL SIGNS: Stable, afebrile. GENERAL: A well-developed female in no acute distress upon exam. HEENT: Normocephalic and atraumatic. Mucosa moist. NECK: Supple. No lymphadenopathy. LUNGS: Clear at this time with no wheeze, rhonchi or rales. HEART: Regular rate and rhythm. No murmurs, rubs or gallops. ABDOMEN: Soft, nontender, nondistended. Positive bowel sounds times 4. EXTREMITIES: No clubbing, cyanosis or edema. NEUROLOGIC: She does have some slow mentation, but is easily redirected. LABORATORY DATA: White count is 7.1, H&H of 11 and 34.5 and platelet count was noted to be 388. Sodium is 140, potassium 4.6, BUN and creatinine of 18 and 1.0 and blood sugar is noted to be 150. ASSESSMENT: This is an 82-year-old female patient admitted to rehab with a working diagnosis of debility secondary to a compression fracture at L3. The patient has potential to make improvement. We instituted the following multidisciplinary therapies include, but not limited to physical, occupational, respiratory, speech, nutritional services, prosthetics and orthotics. Given her complex medical condition and risk for more complications, rehabilitation services cannot be provided at a low level of care such as skilled nurse facility. PLAN: 1. Admit to [facility] rehab for inpatient therapy to include the following disciplines: A. Physical therapy to improve gait, all transfer skills and bed mobility to a modified independent level. B. Occupational therapy to a modified independent level. C. Case management to assist with discharge planning and placement options. D. Nutrition to assist with nutritional needs. E. Rehabilitation nursing to assist in monitoring the patient's underlying medical conditions and to assist with any type of bowel or bladder management. 2. The patient's current regimen and medical care will be continued. 3. I am going to go ahead and check a vitamin D level on her on Thursday. 4. We will go ahead and see her again in the a.m. TRANSINT:[id number] Voice Confirmation ID: [id number] DOCUMENT ID: [id number] HISTORY AND PHYSICAL [id number] DERIC BEARDEN notes whether there has been none or any medical/functional change since admission: - Dx of Major neurocognitive disorder of the Alzheimer's type. JANIE attests patient continues to be appropriate for IRF: - Continues to be appropriate. SIDNEY COLBY MD at 1209 CC: [id number] DICTATION DATE: 08/21/18 0907 SENIOR RESEARCH ANALYST: 08/21/18 0934 ADM IN [facility] [address] [place] [address]
--- NOTE | 2018-08-25 12:53 | NUR ---
DAUGHTER HERE FOR TEAM CONFERENCE. PATIENT IS RESTING WO DISTRESS. BED ALARM ON.
--- NOTE | 2018-08-25 17:17 | NUR ---
NO CHANGE IN ASSESSMENT. RESTING WO DISTRESS. CL IN REACH.
--- NOTE | 2018-08-25 19:30 | NUR ---
PT RESTING QUIETLY. CL IN REACH. NO DISTRESS NOTED.WCTM
--- NOTE | 2018-08-25 21:50 | NUR ---
ASSESSMENT COMPLETED. CL IN REACH. PT LYING IN BED. DENIES NEEDS AT THIS TIME. CONFUSED. ALERT TO SELF. BED IN LOW. SIDE RAILS X3. BED ALARM ON. RESP EVEN AND UNLABORED. LUNG CLEAR. BOWEL ACTIVE X4. INCONT MOST OF THE TIME. WCTM. CRUSHED NIGHT TIME MEDS IN PUDDING
[2018-08-25 21:53] VITALS: BP 131/65
--- NOTE | 2018-08-26 04:00 | NUR ---
BED ALARM WAS GOING OFF. PT HAD BOWEL INCONT. BRIEF CHANGED. BUTTOCK RED. WAYNE APPLIED. BACK IN BED. CL IN REACH. WCTM
--- NOTE | 2018-08-26 04:31 | NUR ---
I have reviewed this patient and I concur with the Shift Assessment completed by the Licensed Practical Nurse today this shift.
--- NOTE | 2018-08-26 05:59 | NUR ---
FSBS 154
[2018-08-26 08:00] VITALS: BP 154/74
--- NOTE | 2018-08-26 08:38 | NUR ---
PT RESTING IN BED WITH EYES OPEN CALL LIGHT IN REACH NO PROBLEMS WILL MONITER
--- NOTE | 2018-08-26 18:16 | NUR ---
PT RESTING IN BED WITH EYES OPEN CALL LIGHT IN REACH NO PROBLEMS WILL MONITER
--- NOTE | 2018-08-26 20:06 | NUR ---
ASSISTED TO BED. RESPIRAITONS UNLABORED. REMAINS CONFUSED AND DISORIENTED TO PLACE TIME AND SITUATION. SAFETY MEASURES IN PLACE.
--- NOTE | 2018-08-27 03:24 | NUR ---
RESTING IN BED WITH EYES CLOSED AND RESPIRATIONS UNLABORED. NO DISTRESS NOTED. CALL LIGHT IN REACH.
--- NOTE | 2018-08-27 04:59 | NUR ---
QUIET HOURS. SLEPT WELL AFTER TAKING HS MEDICATIONS. NO ACUTE CHANGES IN CONDITION THIS SHIFT. SAFETY MEASURES IN PLACE.
[2018-08-27 06:17] LABS: BASOPHILS 0.2 % (0-2); EOSINOPHILS 4.7 % (0-7); HEMATOCRIT 33.6 % (36.0-48.0); HEMOGLOBIN 10.9 g/dL (12-16); IMMATURE GRANULOCYTES 0.5 % (0-5); MCH 29.3 pg (26.0-34.0); MCHC 32.4 g/dL (31.0-37.0); MCV 90.3 fL (80.0-100.0); MEAN PLATELET VOLUME 9.7 fL (7.4-10.4); NEUTROPHILS 36.6 % (40-80); PLATELET COUNT 352 10x3/uL (130-400); RBC 3.72 10x6/uL (4.00-5.40); WBC 5.8 10x3/uL (4.8-10.8)
[2018-08-27 06:49] LABS: ANION GAP 12.2 mmol/L (8-16); CALCIUM 9.5 mg/dL (8.5-10.1); CARBON DIOXIDE 27.2 mmol/L (21.0-32.0); CREATININE - SERUM 1.2 mg/dL (0.6-1.3); POTASSIUM - SERUM 4.4 mmol/L (3.5-5.1)
--- NOTE | 2018-08-27 07:04 | NUR ---
RECEIVED REPORT. LYING IN BED SUPINE EYES CLOSED RESTING. NO SIGNS OF DISTRESS NOTED. CALL LIGHT WITHIN REACH, RAPHAEL ALARM ON, FALL PRECAUTIONS IN PLACE. WILL CONTINUE TO MONITOR
[2018-08-27 08:00] VITALS: BP 151/57
--- NOTE | 2018-08-27 11:47 | NUR ---
LYING IN BED ON RIGHT SIDE EYES CLOSED RESTING. BRIEF AND LINENS DRY. NO SIGNS OF DISTRESS NOTED. WILL CONTINUE TO MONITOR
--- NOTE | 2018-08-27 13:50 | NUR ---
IN THERAPY GYM PARTICIPATING IN PT WITH CHRIS. NO SIGNS OF DISTRESS NOTED.
--- NOTE | 2018-08-27 17:04 | NUR ---
SITTING UP IN BED EATING DINNER. FAMILY AT BEDSIDE ASSISTING PT WITH MEAL.
[2018-08-27 19:40] VITALS: BP 129/52
--- NOTE | 2018-08-27 19:53 | NUR ---
AWAKE AND RESTING IN BED WITH RESPIRATIONS UNLABORED. REMAINS CONFUSED AND DISORIETNED TO PLACE TIME AND SITUATION. SAFETY MEASURES IN PLACE. CALL LIGHT IN REACH.
--- NOTE | 2018-08-28 05:04 | NUR ---
QUIET HOURS. RESTING IN BED WITH NO DISTRESS NOTED. NO ACUTE CHANGES IN CONDITION THIS SHIFT. CALL LIGHT IN REACH.
--- NOTE | 2018-08-28 07:05 | NUR ---
RECEIVED REPORT. LYING IN BED ON LEFT SIDE EYES CLOSED RESTING. NO SIGNS OF DISTRESS NOTED. CALL LIGHT WITHIN REACH, FALL PRECAUTIONS IN PLACE. WILL CONTINUE TO MONITOR
[2018-08-28 08:10] VITALS: BP 154/74
--- NOTE | 2018-08-28 12:00 | NUR ---
ASSISTED PT WITH SHOWER AND ORAL HYGIENE WITH MOD ASSIST. COMPLETE LINEN CHANGE DONE.
--- NOTE | 2018-08-28 12:32 | NUR ---
SITTING UP IN CHAIR, FAMILY IN ROOM ASSISTING WITH LUNCH. NO SIGNS OF DISTRESS NOTED. WILL CONTINUE TO MONITOR
--- NOTE | 2018-08-28 15:36 | NUR ---
LYING IN BED ON LEFT SIDE EYES CLOSED RESTING. BED ALARM ON
--- NOTE | 2018-08-28 17:00 | NUR ---
PERFORMED INCONTINENCE CARE MED URINE INCONTINENCE.
--- NOTE | 2018-08-28 17:37 | NUR ---
SITTING UP IN BED EATING DINNER. DAUGHTER JOAQUIN AT BEDSIDE. DENIES ANY NEEDS OR PAIN. WILL CONTINUE TO MONITOR
--- NOTE | 2018-08-28 19:26 | NUR ---
GREETED PATIENT AND INTRODUCED MYSELF. PATIENT IS LAYING IN BED ON RIGHT SIDE. PT. IS CONFUSED TO SURROUNDINGS. REORIENTATED PT. TO SELF AND SURROUNDINGS. SR UP X 2. BED IN LOWEST POSITION. RESPIRATIONS EVEN. NO S/S OF DISTRESS. CALL LIGHT IN REACH.
[2018-08-28 20:13] VITALS: BP 142/63
[2018-08-28 20:24] VITALS: BP 142/63
--- NOTE | 2018-08-29 03:10 | NUR ---
PATIENT CLEANED OF INCONTINENT URINE. COMPLETE LINEN CHANGE. PATIENT REPOSITIONED FOR COMFORT. CALL LIGHT IN REACH.
--- NOTE | 2018-08-29 03:33 | NUR ---
PATIENT RESTING QUIETLY IN BED WITH EYES OPEN. RESPIRATIONS EVEN. NO S/S OF DISTRESS. CALL LIGHT IN REACH.
[2018-08-29 07:20] VITALS: BP 168/71
--- NOTE | 2018-08-29 07:20 | NUR ---
RECEIVED REPORT. LYING IN BED ON RIGHT SIDE ALERT EYES OPEN. ALERT TO SELF. REORIENTED TO PLACE, TIME, AND SITUATION. VS STABLE, SHIFT ASSESSMENT COMPLETE. DENIES ANY PAIN OR NEEDS. BRIEF AND LINENS CLEAN AND DRY. CALL LIGHT WITHIN REACH, FALL PRECAUTIONS IN PLACE. WILL CONTINUE TO MONITOR
--- NOTE | 2018-08-29 12:48 | NUR ---
SITTING UP IN BED EATING LUNCH. ASSISTED WITH MEAL SET UP. DENIES ANY PAIN, NO NEEDS VOICED. ALARM ON.
--- NOTE | 2018-08-29 17:43 | NUR ---
SITTING UP IN BED EATING DINNER. DENIES ANY NEEDS OR PAIN. NO SIGNS OF DISTRESS NOTED. CALL LIGHT WITHIN REACH, FALL PRECAUTIONS IN PLACE. WILL CONTINUE TO MONITOR
--- NOTE | 2018-08-29 22:39 | NUR ---
1929: PATIENT SLEEPING AT THIS TIME. DID NOT AWAKEN. 2114: AWAKEN PATIENT FOR MED PASS. PATIENT ALERT WITH SOME CONFUSION. BLOOD SUGAR WAS 172 AND 2 UNITS OF INSULIN WAS GIVEN. NO OTHER COMPLAINTS AT THIS TIME. WILL CONTINUE TO [facility]. CALL LIGHT WITH IN REACH.
[2018-08-29 22:52] VITALS: BP 144/62
--- NOTE | 2018-08-30 01:58 | NUR ---
PATIENT SLEEPING AT THIS TIME. WILL CONTINUE TO MONITOR.
[2018-08-30 06:43] LABS: ANION GAP 12.8 mmol/L (8-16); CALCIUM 9.1 mg/dL (8.5-10.1); CARBON DIOXIDE 29.5 mmol/L (21.0-32.0); CREATININE - SERUM 0.9 mg/dL (0.6-1.3); POTASSIUM - SERUM 4.3 mmol/L (3.5-5.1)
[2018-08-30 06:46] LABS: BASOPHILS 0.4 % (0-2); EOSINOPHILS 4.2 % (0-7); HEMATOCRIT 36.7 % (36.0-48.0); HEMOGLOBIN 12.1 g/dL (12-16); IMMATURE GRANULOCYTES 0.7 % (0-5); LYMPHOCYTES 41.5 % (15-50); MCH 29.2 pg (26.0-34.0); MCV 88.4 fL (80.0-100.0); MEAN PLATELET VOLUME 9.5 fL (7.4-10.4); MONOCYTES 9.2 % (2-11); PLATELET COUNT 384 10x3/uL (130-400); RBC 4.15 10x6/uL (4.00-5.40); RDW 15.5 % (11.5-14.5); WBC 6.9 10x3/uL (4.8-10.8)
[2018-08-30 08:00] VITALS: BP 135/73
--- NOTE | 2018-08-30 08:00 | NUR ---
PT RESTING IN BED WITH EYES OPEN CALL LIGHT IN REACH NO PROBLEMS WILL MONITER
--- NOTE | 2018-08-30 12:56 | NUR ---
PATIENT ADMITTED TO REHAB FROM ACUTE FLOOR. DISCHARGE PLANS ARE FOR PATIENT TO RETURN HOME WITH FAMILY. DME AT HOME IS A WALKER, SHE IS A CLIENT OF [employer] AND DR. COLBY IS HER PCP. WILL CONTINUE TO FOLLOW WITH PATIENT.
--- NOTE | 2018-08-30 13:46 | NUR ---
PT RESTING IN BED WITH EYES OPEN CALL LIGHT IN REACH NO PROBLEMS WILL MONITERS
--- NOTE | 2018-08-30 18:09 | NUR ---
PT RESTING IN BED WITH EYES OPEN CALL LIGHT IN REACH WILL MONITER
--- NOTE | 2018-08-30 19:38 | NUR ---
AWAKE AND ALERT RESTING IN BED WITH RESPIRATIONS UNLABORED. NO DISTRESS NOTED. CALL LIGHT IN REACH.
[2018-08-30 21:14] VITALS: BP 135/69
--- NOTE | 2018-08-31 05:00 | NUR ---
RESTING IN BED. QUIET HOURS. NO ACUTE CHANGES IN CONDITION THIS SHIFT. NO DISTRESS NOTED. CALL LIGHT IN REACH.
--- NOTE | 2018-08-31 07:20 | NUR ---
RECEIVED REPORT. LYING IN BED ON LEFT SIDE EYES OPEN, ALERT TO SELF. REORIENTED TO PLACE, TIME AND SITUATION. DENIES ANY PAIN OR NEEDS. LINENS AND BRIEF CLEAN AND DRY. VS STABLE, SHIFT ASSESSMENT COMPLETE. CALL LIGHT WITHIN REACH, FALL PRECAUTIONS IN PLACE. WILL CONTINUE TO MONITOR
[2018-08-31 07:25] VITALS: BP 141/72
--- NOTE | 2018-08-31 11:51 | NUR ---
IN THERAPY GYM PARTICIPATING IN PHYSICAL THERAPY. NO SIGNS OF DISTRESS NOTED.
--- NOTE | 2018-08-31 14:00 | NUR ---
PER PATIENT FAMILY REQUEST , THEY WOULD LIKE A REFERRAL TO BE MADE TO [facility] AT DISCHARGE FROM REHAB. WILL CONTINUE TO FOLLOW WITH PATIENT.
--- NOTE | 2018-08-31 14:26 | NUR ---
LYING IN BED SUPINE EYES CLOSED RESTING. NO SIGNS OF DISTRESS NOTED. WILL CONTINUE TO MONITOR
--- NOTE | 2018-08-31 17:35 | NUR ---
ASSISTED TRANSFER FROM BED TO CHAIR. EATING DINNER. FAMILY AT BEDSIDE. NO SIGNS OF DISTRESS NOTED. WILL CONTINUE TO MONITOR
[2018-08-31 19:39] VITALS: BP 150/67
--- NOTE | 2018-08-31 20:12 | NUR ---
RESTING IN BED WITH RESPRIATIONS UNLABORED. NO DISTRESS NOTED. CALL LIGHT IN REACH. REMAINS CONFUSED AT TIMES. SAFETY MEASURES IN PLACE.
--- NOTE | 2018-09-01 02:20 | NUR ---
SAT UP IN RECLINER IN NURSES STATION FOR A FEW HOURS. NOW RESTING IN BED WITH NO DISTRESS NOTED. CALL LIGHT IN REACH.
--- NOTE | 2018-09-01 04:58 | NUR ---
RESTING IN BED WITH EYES CLOSED AND RESPIRATIONS UNLABORED. HAS HAD TWO LOOSE INCONTINENT STOOLS THIS SHIFT.
[2018-09-01 07:21] LABS: BASOPHILS 0.3 % (0-2); EOSINOPHILS 3.1 % (0-7); HEMATOCRIT 34.1 % (36.0-48.0); HEMOGLOBIN 11.1 g/dL (12-16); IMMATURE GRANULOCYTES 0.4 % (0-5); LYMPHOCYTES 36.2 % (15-50); MCH 28.8 pg (26.0-34.0); MCHC 32.6 g/dL (31.0-37.0); MCV 88.6 fL (80.0-100.0); MEAN PLATELET VOLUME 9.5 fL (7.4-10.4); MONOCYTES 8.4 % (2-11); NEUTROPHILS 51.6 % (40-80); PLATELET COUNT 350 10x3/uL (130-400); RBC 3.85 10x6/uL (4.00-5.40); RDW 15.6 % (11.5-14.5)
[2018-09-01 07:32] LABS: ANION GAP 12.9 mmol/L (8-16); CALCIUM 9.4 mg/dL (8.5-10.1); CARBON DIOXIDE 28.1 mmol/L (21.0-32.0)
[2018-09-01 08:00] VITALS: BP 127/77
--- NOTE | 2018-09-01 08:01 | NUR ---
ALERT AND ORIENTED TO SELF. CONFUSION NOTED BUT HAS IMPROVED SINCE ADMIT. ABLE TO FEED SELF CERTAIN FINGER FOODS. NO DISTRESS NOTED. CL IN REACH. RESP EVEN AND UNLABORED.
--- NOTE | 2018-09-01 09:26 | NUR ---
SHOWER GIVEN PER OT.
--- NOTE | 2018-09-01 13:37 | NUR ---
Nutrition Follow Up: Chart reviewed Diet: ADA; Glucerna BID PO Intake: 79% meal avg BM: 09/01/18 Meds and labs reviewed Rec continue current diet, supplement regimen. RD following.
--- NOTE | 2018-09-01 13:53 | NUR ---
PARTICIPATING IN THERAPY. NO C/O PAIN. RESTING IN BED AT THIS TIME. BED ALARM ON. CL IN REACH.
--- NOTE | 2018-09-01 14:35 | NUR ---
CARE TEAM MEETING : PATIENT DAUGHTER ATTENDED MEETING. HER QUESTIONS AND CONCERNS WERE ADDRESSED. TENTIVE DISCHARGE DATE IS 09/07/18. DAUGHTER WOULD LIKE HER MOTHER TO GO TO [facility] AND A REFERRAL WILL BE MADE FOR POSSIBLE ADMISSION. WILL CONTINUE TO FOLLOW WITH PATIENT.
--- NOTE | 2018-09-01 18:13 | NUR ---
DAUGHTER AT BS. NO CHANGE IN ASSESSMENT. BED ALARM ON. CL IN REACH.
--- NOTE | 2018-09-01 19:38 | NUR ---
AWAKE AND ALERT BUT NOTED CONFUSED. RESTING IN BED WITH RESPIRATIONS UNLABORED. NO DISTRESS NOTED. CALL LIGHT IN REACH.
[2018-09-01 20:40] VITALS: BP 155/53
--- NOTE | 2018-09-02 05:23 | NUR ---
QUIET HOURS. NO ACUTE CHANGES IN CONDITION THIS SHIFT. RESTING IN BED WITH NO DISTRESS NOTED. CALL LIGHT IN REACH.
[2018-09-02 08:00] VITALS: BP 134/68
--- NOTE | 2018-09-02 08:15 | NUR ---
PT UP IN WHEELCHAIR EATING BREAKFAST TOLERATING WELL CALL LIGHT IN REACH NO PROBLEMS WILL MONITER
--- NOTE | 2018-09-02 18:33 | NUR ---
PT RESTING IN BED WITH EYES OPEN CALL LIGHT IN REACH WILL MONITER
--- NOTE | 2018-09-02 19:45 | NUR ---
PATIENT RECEIVED LAYING IN BED. PATIENT ASSESSMENT & VITAL SIGNS DONE. NO C/O PAIN OR DISTRESS. BED LOW. ALARM ON. CALL LIGHT WITHIN REACH. WILL CONTINUE TO MONITOR.
[2018-09-02 20:00] VITALS: BP 133/54
--- NOTE | 2018-09-03 02:24 | NUR ---
PATIENT EYES CLOSED. RESPIRATIONS 18 & EVEN. BED LOW. ALARM ON. CALL LIGHT WITHIN REACH. WILL CONTINUE TO MONITOR.
--- NOTE | 2018-09-03 06:17 | NUR ---
I have reviewed this patient and I concur with the Shift Assessment completed by the Licensed Practical Nurse today this shift.
[2018-09-03 06:52] LABS: BASOPHILS 0.4 % (0-2); EOSINOPHILS 3.9 % (0-7); HEMATOCRIT 33.7 % (36.0-48.0); IMMATURE GRANULOCYTES 0.4 % (0-5); LYMPHOCYTES 35.8 % (15-50); MCHC 32.6 g/dL (31.0-37.0); MCV 88.9 fL (80.0-100.0); MEAN PLATELET VOLUME 9.7 fL (7.4-10.4); MONOCYTES 7.7 % (2-11); NEUTROPHILS 51.8 % (40-80); PLATELET COUNT 321 10x3/uL (130-400); RBC 3.79 10x6/uL (4.00-5.40); RDW 15.9 % (11.5-14.5)
[2018-09-03 07:07] LABS: ANION GAP 13.4 mmol/L (8-16); CARBON DIOXIDE 25.5 mmol/L (21.0-32.0); CREATININE - SERUM 1.1 mg/dL (0.6-1.3); POTASSIUM - SERUM 3.9 mmol/L (3.5-5.1)
--- NOTE | 2018-09-03 08:15 | NUR ---
PT RESTING IN BED EATING BREAKFAST TOLERATING WELL CALL LIGHT IN REACH WILL MONITER
[2018-09-03 08:31] VITALS: BP 165/79
--- NOTE | 2018-09-03 17:00 | NUR ---
PT EATING SUPPER ON SIDE OF BED CALL LIGHT IN REACH NO PROBLEMS WILL MONITER
[2018-09-03 19:46] VITALS: BP 131/69
--- NOTE | 2018-09-03 20:00 | NUR ---
PATIENT RECEIVED LAYING ON LEFT SIDE AWAKE. ASSESSMENT & VITAL SIGNS DONE. BED LOW. ALARM ON. CALL LIGHT WITHIN REACH. WILL CONTINUE TO MONITOR.
--- NOTE | 2018-09-04 02:19 | NUR ---
I have reviewed this patient and I concur with the Shift Assessment completed by the Licensed Practical Nurse today this shift.
--- NOTE | 2018-09-04 03:40 | NUR ---
PATIENT EYES CLOSED. RESPIRATIONS 18 & EVEN, BED LOW. TABLE & CALL LIGHT WITHIN REACH. WILL CONTINUE TO MONITOR.
--- NOTE | 2018-09-04 08:04 | NUR ---
ALERT WITH SOME CONFUSION NOTED. CL IN REACH. NO DISTRESS NOTED.
[2018-09-04 08:55] VITALS: BP 148/55
--- NOTE | 2018-09-04 13:55 | NUR ---
SAT IN CHAIR FOR LUNCH WITH CHAIR ALARM ON. RETURNED TO BED AT THIS TIME WITH BED ALARM ON. NO DISTRESS NOTED. CL IN REACH.
--- NOTE | 2018-09-04 16:49 | NUR ---
NO CHANGE IN ASSESSMENT. DAUGHTER AT BS. NO C/O PAIN. CL IN REACH.
--- NOTE | 2018-09-04 19:35 | NUR ---
PT LYING IN BED. CL IN REACH. BED ALARM ON. BED IN LOW SIDE RAILS X2. DENIES NEEDS OR PAIN AT THIS TIME. RESP EVEN AND UNLABORED. CONFUSED. ALERT. LUNGS CLEAR. BOWEL ACTIVE X4. INCONT MOST OF THE TIME. ASSESSMENT COMPLETED. WILL CONTINUE TO MONITOR.
--- NOTE | 2018-09-05 02:10 | NUR ---
BED ALARM SOUNDING PT WALKING TO DOORWAY. ASSISTED PT TO BATHROOM. CHANGED BRIEF. BACK IN BED. CL IN REACH. TM
--- NOTE | 2018-09-05 03:56 | NUR ---
I have reviewed this patient and I concur with the Shift Assessment completed by the Licensed Practical Nurse today this shift.
--- NOTE | 2018-09-05 07:38 | NUR ---
ALERT WITH CONFUSION. SITTING AT NURSE STATION IN WC EATING BREAKFAST. NO C/O PAIN.
[2018-09-05 08:02] VITALS: BP 163/76
--- NOTE | 2018-09-05 10:51 | NUR ---
RESTING IN BED WO DISTRESS. RESP EVEN AND UNLABORED. CL IN REACH. BED ALARM ON.
--- NOTE | 2018-09-05 13:06 | NUR ---
CHANGED LINENS. SHOWER GIVEN.
--- NOTE | 2018-09-05 16:03 | NUR ---
NO CHANGE IN ASSESSMENT. DAUGHTER HERE. CHAIR ALARM ON. CL IN REACH.
--- NOTE | 2018-09-05 19:42 | NUR ---
ASSISTED TO AND FROM BATHROOM. BED ALARM SOUNDING PT WAS ALREADY UP OUT OF BED AND WALKING INTO BLAS. PUT PT BACK TO BED AFTER USING BATHROOM. DENIES NEEDS. RESP EVEN AND UNLABORED. CL IN REACH. BED ALARM ON. WCTM.
[2018-09-05 20:08] VITALS: BP 111/57
--- NOTE | 2018-09-06 00:10 | NUR ---
I have reviewed this patient and I concur with the Shift Assessment completed by the Licensed Practical Nurse today this shift.
--- NOTE | 2018-09-06 03:20 | NUR ---
ALARM SOUNDING. ASSISTED PT TO AND FROM BATHROOM. CHANGED SOILED BRIEF. CL IN REACH. BACK IN BED. CPOC
[2018-09-06 07:13] LABS: ANION GAP 10.3 mmol/L (8-16); CALCIUM 9.1 mg/dL (8.5-10.1); CARBON DIOXIDE 27.9 mmol/L (21.0-32.0); CREATININE - SERUM 1.1 mg/dL (0.6-1.3); POTASSIUM - SERUM 4.2 mmol/L (3.5-5.1)
[2018-09-06 07:17] LABS: BASOPHILS 0.3 % (0-2); EOSINOPHILS 2.7 % (0-7); HEMATOCRIT 34.6 % (36.0-48.0); HEMOGLOBIN 11.3 g/dL (12-16); IMMATURE GRANULOCYTES 0.2 % (0-5); LYMPHOCYTES 27.6 % (15-50); MCH 29.2 pg (26.0-34.0); MCHC 32.7 g/dL (31.0-37.0); MCV 89.4 fL (80.0-100.0); MEAN PLATELET VOLUME 9.6 fL (7.4-10.4); NEUTROPHILS 61.2 % (40-80); PLATELET COUNT 286 10x3/uL (130-400); RBC 3.87 10x6/uL (4.00-5.40); RDW 15.9 % (11.5-14.5); WBC 9.1 10x3/uL (4.8-10.8)
[2018-09-06 08:00] VITALS: BP 132/67
--- NOTE | 2018-09-06 09:30 | NUR ---
PATIENT VERY CONFUSED. BED/CHAIR ALARM ON AT ALL TIME. CALL LIGHT WITHIN REACH. VOICES NO NEEDS AT THIS TIME. WILL CONTINUE WITH PLAN OF CARE
--- NOTE | 2018-09-06 12:36 | NUR ---
CASE MANAGEMENT NOTE Spoke with Jaci at [facility]. Clinicals faxed for referral. Jaci to call back with picker and sorter load and unload time. Hawa Nicholson, SUPERINTENDENT [employer] Rehab PD
--- NOTE | 2018-09-06 13:35 | NUR ---
Nutrition follow-up: Diet: ADA consistent CHO PO intake ~77% average of last 9 meals Labs reviewed WT: no new wt +BM PO intake good at this time. RDN following.
--- NOTE | 2018-09-06 14:01 | NUR ---
PATIENT RESTING IN BED AFTER THERAPY AND LUNCH. BED ALARM ON
--- NOTE | 2018-09-06 16:54 | NUR ---
SPEECH THERAPIST IN ROOM. WORKING WITH PATIENT
--- NOTE | 2018-09-06 19:31 | NUR ---
PT IN BED LOWEST POSITION, DAUGHTER AT BEDSIDE, NO IMMEDIATE NEEDS NOTED, FLUIDS AND CALL LIGHT WITHIN REACH
[2018-09-06 20:05] VITALS: BP 159/74
--- NOTE | 2018-09-07 01:19 | NUR ---
PT IN BED LOWEST POSITION, EYES CLOSED, AROUSES EASILY TO VOICE, RESPIRATIONS EVEN AND UNLABORED, NO IMMEDIATE NEEDS NOTED AT THIS TIME, FLUIDS AND CALL LIGHT WITHIN REACH
[2018-09-07 08:00] VITALS: BP 155/33
--- NOTE | 2018-09-07 08:42 | NUR ---
CONFUSED. RESP EVEN AND UNLABORED. REPOSITIONED UP IN BED. NO DISTRESS NOTED.
--- NOTE | 2018-09-07 14:36 | NUR ---
PATIENT IS GOING TO DC TODAY TO [facility]. SHE IS TO BE PICKED UP PER THEIR VAN AT 1500. REPORT WAS CALLED TO [facility] TO KURTIS NURSE AT THAT FACILITY. DAUGHTER IS HERE AT THIS TIME. DC INSTRUCTIONS ARE BEING SENT WITH PATIENT TO [facility]. NO CHANGE IN ASSESSMENT.
--- NOTE | 2018-09-07 15:26 | NUR ---
CASE MANAGEMENT NOTE REYNA SUBMITTED AND APPROVED. DISCHARGING TO [facility] AT 3 PM. PATIENT CHOICE FORM AND IMFM FORMS SIGNED, COPY GIVENT TO PATIENT AND FILED IN CHART BY JARRED. ALL INFORMATION FAXED TO FEDE AT [facility]. Hawa Nicholson, PHARMACOVIGILANCE SPECIALIST Rehab PD
--- NOTE | 2018-10-14 10:44 | DS ---
PATIENT:DERIC BEARDEN :37 MEDICAL RECORD: [id number] DISCHARGE SUMMARY ADMISSION DATE: 08/20/18 DISCHARGE DATE: 09/07/18 This is a discharge dated 09/07/2018, from inpatient rehabilitation. PRIMARY DIAGNOSES: Decreased functional ability and ability to provide activities of daily living secondary to an L3-L4 compression fracture. SECONDARY DIAGNOSES: 1. Spinal canal stenosis. 2. Vascular dementia. 3. Neuropathy. 4. Coronary artery disease. 5. Hypertension. 6. Diabetes. 7. Urinary tract infection. 8. Cerebrovascular accident by history. 9. Metabolic encephalopathy. 10. Depression. 11. Anemia. 12. Hypokalemia. HOSPITAL COURSE: Full H&P is located elsewhere on the chart on this 82-year-old female who was admitted to inpatient rehab for physical therapy and occupational therapy to improve gait, transfer skills, bed mobility, and activities of daily living to a modified independent level. She was evaluated by PT, OT, and ST and their plans of care were followed. She required chcf care for observation and assessment as well as medication administration. Electrolytes were managed by protocol. Fingerstick blood sugars were monitored throughout her hospital stay with appropriate adjustment in medications as needed. She required medications for pain control. She was cooperative with therapies, progressing towards goals. Case management was involved for discharge planning. She was considered stable for discharge on 09/07/2018, having met 4/4 long-term PT goals and 3/7 OT goals and 3/[address] long-[address] ST goals. It was recommended for continued therapy here at discharge. DISCHARGE MEDICATIONS: As per discharge medication reconciliation. DISCHARGE DISPOSITION: The patient is discharged to [facility]. She will continue her current diet and level of activity and will continue with PT and OT. She will follow with primary care at the senior care and will follow up with her PCP upon discharge from that facility. She will follow up with specialists as directed. At least 30 minutes was spent in this discharge activity. TRANSINT:[id number] Voice Confirmation ID: [id number] DOCUMENT ID: [id number] Dictated By: SUE DASH I have interviewed/examined the above patient and agree with these documented findings. DISCHARGE SUMMARY REPORT [id number] BEARDENDERIC,SIDNEY CHATTERJEE MD at 1046 at 1044 CC: [id number] DICTATION DATE: 10/10/18 1558 DROP MAN: 10/10/18 2300 DIS IN 09/07/18 [facility] [address] [facility]
== END 2018-09-07 15:03 | disposition short-term general hospital (02) | DRG 948 ==
LOC: D.REHAB 15:41
PROVIDERS: ADMIT Emergency Medicine; ATTEND Emergency Medicine
DX: R53.81 Other malaise (principal); N39.0 Urinary tract infection, site not specified; S34.103D Unspecified injury to L3 level of lumbar spinal cord, subsequent encounter; I25.10 Atherosclerotic heart disease of native coronary artery without angina pectoris; D64.9 Anemia, unspecified; E11.40 Type 2 diabetes mellitus with diabetic neuropathy, unspecified; I10 Essential (primary) hypertension; Z95.1 Presence of aortocoronary bypass graft; R26.9 Unspecified abnormalities of gait and mobility; K21.9 Gastro-esophageal reflux disease without esophagitis; M43.16 Spondylolisthesis, lumbar region

== ENCOUNTER 2018-09-23 02:10 | Emergency (ER) | payer MEDICARE, OTHER ==
[~2018-09-23] VITALS: Ht 157.5 cm; Wt 50.0 kg
[2018-09-23 02:12] VITALS: Ht 157.5 cm; Wt 50.0 kg
[2018-09-23 02:47] LABS: BASOPHILS 0.2 % (0-2); EOSINOPHILS 1.6 % (0-7); HEMATOCRIT 35.1 % (36.0-48.0); HEMOGLOBIN 11.4 g/dL (12-16); IMMATURE GRANULOCYTES 0.4 % (0-5); LYMPHOCYTES 20.3 % (15-50); MCH 28.5 pg (26.0-34.0); MCHC 32.5 g/dL (31.0-37.0); MCV 87.8 fL (80.0-100.0); MONOCYTES 8.2 % (2-11); NEUTROPHILS 69.3 % (40-80); RDW 15.7 % (11.5-14.5); WBC 11.5 10x3/uL (4.8-10.8)
[2018-09-23 02:49] LABS: PLATELET COUNT 358 10x3/uL (130-400)
[2018-09-23 03:02] LABS: ALBUMIN 2.9 g/dL (3.4-5.0); ANION GAP 16.1 mmol/L (8-16); BILIRUBIN - TOTAL 0.38 mg/dL (0.2-1.3); CALCIUM 9.9 mg/dL (8.5-10.1); CARBON DIOXIDE 22.4 mmol/L (21.0-32.0); CREATININE - SERUM 2.5 mg/dL (0.6-1.3); PROTEIN - SERUM 8.5 g/dL (6.4-8.2)
[2018-09-23 03:06] LABS: POTASSIUM - SERUM 6.5 mmol/L (3.5-5.1)
[2018-09-23 07:24] VITALS: BP 140/84
== END 2018-09-23 07:27 ==
LOC: D.ER 02:10
PROVIDERS: Family Medicine
DX: E87.5 Hyperkalemia (principal); Z86.73 Personal history of transient ischemic attack (TIA), and cerebral infarction without residual deficits; E11.9 Type 2 diabetes mellitus without complications; I10 Essential (primary) hypertension